=== PATIENT | female | born 1995 | race Caucasian/White ===

== ENCOUNTER 2018-06-19 17:04 | Emergency (ER) | payer SELFPAY ==
[2018-06-19] MEDS ORDERED: DEXAMETHASONE 4 MG TAB ONE (18:11)
[2018-06-19] MEDS ORDERED: IBUPROFEN 400 MG TAB ONE (18:11)
--- NOTE | 2018-06-19 18:48 | EDPHYS ---
Physician Documentation [facility] Name: Kassy Armenta Age: 23 yrs Sex: Female : 1995 Arrival Date: 06/19/2018 Time: 17:08 Bed 12 Private MD: ED Physician Milind Mckeon HPI: 06/19 17:57 This 23 yrs old Female presents to ER via Ambulatory with complaints of Sore ps1 Throat. 17:57 2 days of pharyngitis. Tonsillar swelling, Exudates, subjective fever, pain with ps1 swallowing, Cervical lymphadenopathy. No remitting factors. Worse with swallowing. Pain rated as moderate to severe. . 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 - Social history:: Smoking status: Patient uses tobacco products, smokes one-half pack cigarettes per day. - Ebola Screening: : No symptoms or risks identified at this time. ROS: 17:57 Constitutional: Negative for fever, chills, and weight loss, Eyes: Negative for injury, ps1 pain, redness, and discharge, Cardiovascular: Negative for chest pain, palpitations, and edema, Respiratory: Negative for shortness of breath, cough, wheezing, and pleuritic chest pain, Abdomen/GI: Negative for abdominal pain, nausea, vomiting, diarrhea, and constipation, Back: Negative for injury and pain, Neuro: Negative for headache, weakness, numbness, tingling, and seizure, Psych: Negative for depression, anxiety, suicide ideation, homicidal ideation, and hallucinations. 17:57 ENT: Positive for sore throat. Exam: 17:57 Constitutional: This is a well developed, well nourished patient who is awake, alert, ps1 and in no acute distress. Head/Face: Normocephalic, atraumatic. Eyes: Pupils equal round and reactive to light, extra-ocular motions intact. Lids and lashes normal. Conjunctiva and sclera are non-icteric and not injected. Chest/axilla: Normal chest wall appearance and motion. Nontender with no deformity. No lesions are appreciated. Respiratory: Lungs have equal breath sounds bilaterally, clear to auscultation and percussion. No rales, rhonchi or wheezes noted. No increased work of breathing, no retractions or nasal flaring. Abdomen/GI: Soft, non-tender, with normal bowel sounds. No distension or tympany. No guarding or rebound. No evidence of tenderness throughout. 17:57 ENT: Posterior pharynx: Airway: normal, Tonsils: bilaterally enlarged, with erythema, with exudate, Uvula: normal, swelling, that is mild, peritonsillar mass, is not appreciated. 17:57 Cardiovascular: Rate: tachycardic, Rhythm: regular, Pulses: no pulse deficits are appreciated. Vital Signs: 17:38 BP 123 / 67; Pulse 110; Resp 22 S; Temp 98.9(O); Pulse Ox 100% on R/A; Weight 49.9 kg jl7 (R); Height 5 ft. 2 in. (157.48 cm) (R); Pain 8/10; 17:38 Body Mass Index 20.12 (49.90 kg, 157.48 cm) jl7 MDM: 17:57 Data reviewed: vital signs, nurses notes, and as a result, I will discharge patient. ED ps1 course: decadron and motrin given. Strep screen and throat culture ordered. . 18:02 Patient medically screened. ps1 06/19 17:52 Order name: Strep; Complete Time: 18:44 ps1 06/19 17:52 Order name: Throat Culture ps1 Administered Medications: 18:12 Drug: Motrin 800 mg Route: PO; la1 18:12 Drug: Decadron 10 mg Route: PO; la1 19:00 Drug: Viscous Lidocaine Liquid (4 %) 10 ml Route: Mucous Membrane; iw Disposition: 06/19/18 18:48 Discharged to Home. Impression: Pharyngitis. - Condition is Stable. - Discharge Instructions: Pharyngitis. - Prescriptions for Anaprox DS 550 mg Oral Tablet - take 1 tablet by ORAL route every 12 hours As needed; 20 tablet. Zithromax Z- Leonardo 250 mg Oral Tablet - take 1 tablet by ORAL route as directed for 5 days Day 1 - take two (2) tablets one time. Day 2, 3, 4 , 5 take one (1) tablet once daily.; 6 tablet. Medrol (Leonardo) 4 mg Oral Tablets, Dose Pack - take 1 tablet by ORAL route as directed - follow package instructions; 1 packet. - Work release form, Medication Reconciliation Form, Thank You Letter, Antibiotic Education, Prescription Opioid Use form. - Follow up: Private Physician; When: As needed; Reason: Recheck today's complaints, Continuance of care, Re-evaluation by your physician. Follow up: Emergency Department; When: As needed; Reason: Fever > 102 F, Trouble breathing, Worsening of condition. - Problem is new. - Symptoms have worsened. Signatures: Dispatcher [employer] EDMS Latrice Cody RN RN iw Thomas Gonzalez RN RN la1 Tammie Barba RN RN jl7 Milind Mckeon MD MD ps1 Corrections: (The following items were deleted from the chart) 19:00 18:48 06/19/2018 18:48 Discharged to Home. Impression: Pharyngitis. Condition is iw Stable. Forms are Medication Reconciliation Form, Thank You Letter, Antibiotic Education, Prescription Opioid Use. Follow up: Private Physician; When: As needed; Reason: Recheck today's complaints, Continuance of care, Re-evaluation by your physician. Follow up: Emergency Department; When: As needed; Reason: Fever > 102 F, Trouble breathing, Worsening of condition. Problem is new. Symptoms have worsened. ps1
--- NOTE | 2018-06-19 18:48 | ER ---
Nurse's Notes [facility] Name: Kassy Armenta Age: 23 yrs Sex: Female : 1995 Arrival Date: 06/19/2018 Time: 17:08 Bed 12 Private MD: Diagnosis: Pharyngitis Presentation: 06/19 17:36 Presenting complaint: Patient states: Sore throat started yesterday, noticed pus on jl7 tonsils this morning. Transition of care: patient was not received from another setting of care. Onset of symptoms was June 18, 2018. Risk Assessment: Do you want to hurt yourself or someone else? Patient reports no desire to harm self or others. Initial Sepsis Screen: Does the patient meet any 2 criteria? No. Patient's initial sepsis screen is negative. Does the patient have a suspected source of infection? No. Patient's initial sepsis screen is negative. Care prior to arrival: None. 17:36 Method Of Arrival: Ambulatory [facility] 17:36 Acuity: LEO 4 jl7 Triage Assessment: 17:38 General: Appears in no apparent distress. uncomfortable, Behavior is calm, cooperative, jl7 appropriate for age. Pain: Complains of pain in sore throat Pain currently is 8 out of 10 on a pain scale. Pain began 1 day ago. Is continuous. EENT: Throat has patchy exudate has enlarged tonsils bilaterally. Neuro: Level of Consciousness is awake, alert, obeys commands, Oriented to person, place, time, situation. Cardiovascular: Patient's skin is warm and dry. Respiratory: Airway is patent Respiratory effort is even, unlabored, Respiratory pattern is regular, symmetrical. GI: No signs and/or symptoms were reported involving the gastrointestinal system. : No signs and/or symptoms were reported regarding the genitourinary system. Derm: Skin is pink, warm \T\ dry. Musculoskeletal: No signs and/or symptoms reported regarding the musculoskeletal system. 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 - Social history:: Smoking status: Patient uses tobacco products, smokes one-half pack cigarettes per day. - Ebola Screening: : No symptoms or risks identified at this time. Screenin:41 Abuse screen: Denies threats or abuse. Denies injuries from another. Nutritional iw screening: No deficits noted. Tuberculosis screening: No symptoms or risk factors identified. Fall Risk None identified. Assessment: 18:20 General: Appears uncomfortable, Behavior is calm, cooperative. General: Reports fever iw for feeling ill for. Pain: Complains of pain in throat. Neuro: Level of Consciousness is awake, alert, obeys commands, Oriented to person, place, time, situation, Moves all extremities. Full function. Cardiovascular: Patient's skin is warm and dry. Respiratory: Airway is patent Respiratory effort is even, unlabored, Breath sounds are clear bilaterally. Derm: Skin is pink, warm \T\ dry. normal. Musculoskeletal: Range of motion: intact in all extremities. Vital Signs: 17:38 BP 123 / 67; Pulse 110; Resp 22 S; Temp 98.9(O); Pulse Ox 100% on R/A; Weight 49.9 kg jl7 (R); Height 5 ft. 2 in. (157.48 cm) (R); Pain 8/10; 17:38 Body Mass Index 20.12 (49.90 kg, 157.48 cm) jl7 ED Course: 17:08 Patient arrived in ED. tw3 17:37 Triage completed. jl7 17:38 Arm band placed on right wrist. jl7 17:51 Milind Mckeon MD is Attending Physician. ps1 17:52 Latrice Cody, RN is Primary Nurse. iw 17:59 Primary Nurse role handed off by Latrice Cody, THA iw 18:05 Latrice Cody, RN is Primary Nurse. iw 18:41 Patient has correct armband on for positive identification. iw 18:41 No provider procedures requiring assistance completed. Patient did not have IV access iw during this emergency room visit. Administered Medications: 18:12 Drug: Motrin 800 mg Route: PO; la1 18:12 Drug: Decadron 10 mg Route: PO; la1 19:00 Drug: Viscous Lidocaine Liquid (4 %) 10 ml Route: Mucous Membrane; iw Outcome: 18:48 Discharge ordered by . ps1 18:59 Discharged to home ambulatory. iw 18:59 Condition: good 18:59 Discharge instructions given to patient, Instructed on discharge instructions, follow up and referral plans. medication usage, Demonstrated understanding of instructions, follow-up care, medications, Prescriptions given X 2. 19:00 Patient left the ED. iw Signatures: Latrice Cody RN RN iw Thomas Gonzalez RN RN la1 Tammie Barba RN RN jl7 Dimitris, Stacey tw3 Milind Mckeon MD MD ps1
[2018-06-19] MEDS ORDERED: LIDOCAINE VISCOUS 2% SOLN 15 ML UDC ONE (18:58)
== END 2018-06-19 19:00 | disposition home or self-care (01) ==
LOC: ER 17:04
DX: J02.9 Acute pharyngitis, unspecified (principal); F17.210 Nicotine dependence, cigarettes, uncomplicated
CPT/HCPCS: 87070; 87081; 99283

== ENCOUNTER 2018-10-07 10:44 | Emergency (ER) | payer SELFPAY ==
[2018-10-07] MEDS ORDERED: KETOROLAC 30 MG/ML INJ ONE (11:27)
[2018-10-07 11:36] LABS: Absolute Lymphocytes (CBC) 2.1 K/uL (0.7-4.9); Absolute Monocytes 0.8 K/uL (0.1-1.3); Absolute Neutrophil 7.7 K/uL (1.8-8.0); Basophils % 0.9 % (0-1.3); Eosinophils % 0.9 % (0-4.4); Hematocrit 40.3 % (36.0-45.0); Lymphocytes % 19.8 % (15.3-44.8); MCH 31.4 pg (27.0-35.0); MCV 88.6 fL (80-100); MPV 7.7 fL (7.6-11.3); Monocytes % 7.2 % (3.3-12.3); RBC Red Blood Cell Count 4.56 M/uL (3.86-4.86)
[2018-10-07 11:52] LABS: BUN Blood Urea Nitrogen 13 mg/dL (7-18); Bicarbonate 22 mmol/L (21-32); Glucose Level 82 mg/dL (74-106); Potassium 3.8 mmol/L (3.5-5.1); Sodium Level 140 mmol/L (136-145)
[2018-10-07 12:27] LABS: Urine Bacteria >50 /HPF (<20); Urine Culture Reflex Order REFLEXED; Urine RBC <5 /HPF (NONE SEEN)
--- NOTE | 2018-10-07 12:38 | RAD REPORT ---
EXAM DESCRIPTION: US - Transvaginal Study Probe - 10/07/2018 12:25 pm CLINICAL HISTORY: ABD PAIN Pelvic pain. COMPARISON: PELVIC COMPLETE dated 01/04/2015 FINDINGS: The uterus is normal in size, shape and echotexture. The uterus measures 7.8 x 5.1 x 4.2 c m. The endometrial stripe measures 6 mm, with IUD noted low in position in the lower uterine segment. Both ovaries are normal in size, shape and echotexture. The right ovary measures 4.4 x 2.5 x 2.0 cm. The left ovary measures 3.5 x 2.4 x 1.6 cm. No ovarian or parovarian lesions. No adnexal masses. Normal Doppler blood flow was demonstrated to both ovaries. No significant pelvic ascites. IMPRESSION: Abnormally low position of the IUD within the lower uterine segment.
--- NOTE | 2018-10-07 12:42 | ER ---
Nurse's Notes [facility] Name: Kassy Armenta Age: 23 yrs Sex: Female : 1995 Arrival Date: 10/07/2018 Time: 10:47 Bed 13 Private MD: None, None Diagnosis: Urinary tract infection, site not specified Presentation: 10/07 10:54 Presenting complaint: Patient states: Bilateral Pelvic pain for 1-2 days worsening sg today, denies discharge or urinary symptoms at this time, reports having had a miscarriage in the past, no reported ectopic , pt denies likely varela of at this time, no N/V/D, just a pain in suprapubic and pelvic lower abd area that is a 10/10. Transition of care: patient was not received from another setting of care. Onset of symptoms was October 07, 2018. Risk Assessment: Do you want to hurt yourself or someone else? Patient reports no desire to harm self or others. Initial Sepsis Screen: Does the patient meet any 2 criteria? No. Patient's initial sepsis screen is negative. Does the patient have a suspected source of infection? No. Patient's initial sepsis screen is negative. Care prior to arrival: None. 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 - Social history:: Smoking status: Patient/guardian denies using tobacco. - Ebola Screening: : Patient negative for fever greater than or equal to 101.5 degrees Fahrenheit, and additional compatible Ebola Virus Disease symptoms Patient denies exposure to infectious person Patient denies travel to an Ebola-affected area in the 21 days before illness onset No symptoms or risks identified at this time. Screenin:55 Abuse screen: Denies threats or abuse. Nutritional screening: No deficits noted. rb1 Tuberculosis screening: No symptoms or risk factors identified. Fall Risk None identified. Assessment: 10:55 General: Appears uncomfortable, Behavior is calm, cooperative, Denies fever. Pain: rb1 Complains of pain in left lower quadrant and right lower quadrant and suprapubic area Pain currently is 10 out of 10 on a pain scale. Pain began x 2 days. Neuro: Level of Consciousness is awake, alert, obeys commands, Oriented to person, place, time, situation. Cardiovascular: Capillary refill < 3 seconds is brisk in bilateral fingers. Respiratory: Airway is patent Respiratory effort is even, unlabored, Respiratory pattern is regular, symmetrical. GI: Bowel sounds present X 4 quads. Abd is soft Abdomen is tender to palpation in suprapubic area, right lower quadrant and left lower quadrant. : No signs and/or symptoms were reported regarding the genitourinary system. Derm: Skin is pink, warm \T\ dry. 11:55 Reassessment: Patient appears in no apparent distress at this time. Patient and/or rb1 family updated on plan of care and expected duration. Pain level reassessed. Patient is alert, oriented x 3, equal unlabored respirations, skin warm/dry/pink. 12:52 Reassessment: Patient appears in no apparent distress at this time. No changes from rb1 previously documented assessment. Family at bedside. Vital Signs: 10:55 Pulse 106; Resp 17; Temp 98.1; Pulse Ox 100% ; Weight 54.43 kg (R); Height 5 ft. 5 in. sg (165.10 cm); Pain 10/10; 11:55 BP 137 / 81; Pulse 92; Resp 16; Pulse Ox 99% on R/A; rb1 12:45 BP 117 / 79; Pulse 82; Resp 17; Pulse Ox 99% on R/A; rb1 10:55 Body Mass Index 19.97 (54.43 kg, 165.10 cm) sg 10:55 BP continues to take at this time ED Course: 10:47 Patient arrived in ED. sb2 10:47 None, None is Private Physician. sb2 10:52 Janeen Owens FNP-C is [facility]. kb 10:52 Mehrdad Wilcox MD is Attending Physician. kb 10:55 Triage completed. sg 10:55 Arm band placed on. sg 10:55 Patient has correct armband on for positive identification. Placed in gown. Bed in low rb1 position. Call light in reach. Side rails up X 1. Pulse ox on. NIBP on. 11:05 Jacqui Garrett, RN is Primary Nurse. rb1 11:25 Inserted saline lock: 22 gauge in right antecubital area, using aseptic technique. rb1 Blood collected. 12:18 Ultrasound completed. Patient tolerated well. sg3 13:20 No provider procedures requiring assistance completed. IV discontinued, intact, rb1 bleeding controlled, No redness/swelling at site. Pressure dressing applied. Administered Medications: 11:26 Drug: TORadol 30 mg Route: IVP; Site: right antecubital; rb1 11:42 Follow up: Response: No adverse reaction; Pain is decreased rb1 12:49 Drug: Macrobid 100 mg Route: PO; rb1 13:20 Follow up: Response: No adverse reaction rb1 Outcome: 12:42 Discharge ordered by MD. kb 13:20 Patient left the ED. rb1 13:20 Discharged to home ambulatory. rb1 13:20 Condition: stable 13:20 Discharge instructions given to patient, Instructed on discharge instructions, follow up and referral plans. medication usage, Demonstrated understanding of instructions, follow-up care, medications, Prescriptions given X 2. Addendum: 10/10/2018 08:15 Addendum: Culture Results: Positive urine culture. No further action required. Bacteria i w sensitive to prescribed antibiotic. Signatures: Janeen Owens, SALES FLOOR TEAM MEMBER-C SALES FLOOR TEAM MEMBER-Ckb Chito Cerda, RN THA sg Latrice Cody RN THA Jacqui Garrett, RN RN rb1 Salome Fragoso sg3 Melissa Graves sb2 Corrections: (The following items were deleted from the chart) 10/07 15:53 13:30 Patient left the ED. rb1 rb1
--- NOTE | 2018-10-07 12:42 | EDPHYS ---
Physician Documentation [facility] Name: Kassy Armenta Age: 23 yrs Sex: Female : 1995 Arrival Date: 10/07/2018 Time: 10:47 Bed 13 Private MD: None, None ED Physician Mehrdad Wilcox HPI: 10/07 11:05 This 23 yrs old Female presents to ER via Ambulatory with complaints of kb Abdominal Pain, Pelvic Pain. 11:05 The patient presents with abdominal pain in the lower abdomen. Onset: The kb symptoms/episode began/occurred 2 day(s) ago, and became worse today. The symptoms do not radiate. Associated signs and symptoms: none. The symptoms are described as constant. Modifying factors: The symptoms are alleviated by nothing, the symptoms are aggravated by pressure. Severity of pain: At its worst the pain was moderate severe in the emergency department the pain is unchanged. The patient has not experienced similar symptoms in the past. The patient has not recently seen a physician. 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 - Social history:: Smoking status: Patient/guardian denies using tobacco. - Ebola Screening: : Patient negative for fever greater than or equal to 101.5 degrees Fahrenheit, and additional compatible Ebola Virus Disease symptoms Patient denies exposure to infectious person Patient denies travel to an Ebola-affected area in the 21 days before illness onset No symptoms or risks identified at this time. ROS: 11:03 Constitutional: Negative for fever, chills, and weight loss, ENT: Negative for injury, kb pain, and discharge, Neck: Negative for injury, pain, and swelling, Cardiovascular: Negative for chest pain, palpitations, and edema, Respiratory: Negative for shortness of breath, cough, wheezing, and pleuritic chest pain, Back: Negative for injury and pain, MS/Extremity: Negative for injury and deformity, Skin: Negative for injury, rash, and discoloration, Neuro: Negative for headache, weakness, numbness, tingling, and seizure. 11:03 Abdomen/GI: Positive for abdominal pain, Negative for nausea, vomiting, and diarrhea, constipation, abdominal cramps, abdominal distension, anorexia. 11:03 : Positive for pelvic pain. Exam: 11:04 Head/Face: Normocephalic, atraumatic. ENT: Nares patent. No nasal discharge, no kb septal abnormalities noted. Tympanic membranes are normal and external auditory canals are clear. Oropharynx with no redness, swelling, or masses, exudates, or evidence of obstruction, uvula midline. Mucous membranes moist. Neck: Trachea midline, no thyromegaly or masses palpated, and no cervical lymphadenopathy. Supple, full range of motion without nuchal rigidity, or vertebral point tenderness. No Meningismus. Chest/axilla: Normal chest wall appearance and motion. Nontender with no deformity. No lesions are appreciated. Cardiovascular: Regular rate and rhythm with a normal S1 and S2. No gallops, murmurs, or rubs. Normal PMI, no JVD. No pulse deficits. Respiratory: Lungs have equal breath sounds bilaterally, clear to auscultation and percussion. No rales, rhonchi or wheezes noted. No increased work of breathing, no retractions or nasal flaring. Skin: Warm, dry with normal turgor. Normal color with no rashes, no lesions, and no evidence of cellulitis. MS/ Extremity: Pulses equal, no cyanosis. Neurovascular intact. Full, normal range of motion. Neuro: Awake and alert, GCS 15, oriented to person, place, time, and situation. Cranial nerves II-XII grossly intact. Motor strength 5/5 in all extremities. Sensory grossly intact. Cerebellar exam normal. Normal gait. 11:04 Constitutional: The patient appears alert, awake, in obvious pain. 11:04 Abdomen/GI: Inspection: abdomen appears normal, Bowel sounds: normal, in all quadrants, Palpation: moderate abdominal tenderness, in the suprapubic area, right lower quadrant and left lower quadrant. Vital Signs: 10:55 Pulse 106; Resp 17; Temp 98.1; Pulse Ox 100% ; Weight 54.43 kg (R); Height 5 ft. 5 in. sg (165.10 cm); Pain 10/10; 11:55 BP 137 / 81; Pulse 92; Resp 16; Pulse Ox 99% on R/A; rb1 12:45 BP 117 / 79; Pulse 82; Resp 17; Pulse Ox 99% on R/A; rb1 10:55 Body Mass Index 19.97 (54.43 kg, 165.10 cm) sg 10:55 BP continues to take at this time sg MDM: 10:57 Patient medically screened. kb 11:04 Data reviewed: vital signs, nurses notes. Data interpreted: Pulse oximetry: on room air kb is 100 %. Interpretation: normal. 12:42 Counseling: I had a detailed discussion with the patient and/or guardian regarding: the kb historical points, exam findings, and any diagnostic results supporting the discharge/admit diagnosis, lab results, radiology results, the need for outpatient follow up, a family practitioner, an OB/Gyne specialist, to return to the emergency department if symptoms worsen or persist or if there are any questions or concerns that arise at home. 12 11:03 Order name: Basic Metabolic Panel 10/07 11:03 Order name: CBC with Diff kb 10/07 11:43 Order name: CBC with Automated Diff; Complete Time: 11:44 EDCA 10/07 11:52 Order name: Basic Metabolic Panel; Complete Time: 11:57 EDCA 10/07 12:03 Order name: Urine Culture [facility] 10/07 12:03 Order name: Urine Microscopic Only [facility] 10/07 11:03 Order name: IV Saline Lock; Complete Time: 11:31 kb 10/07 11:03 Order name: US Transvaginal Study (Probe) 10/07 12:12 Order name: Urine Dipstick--Ancillary (enter results) 10/07 12:12 Order name: Urine --Ancillary (enter results) 10/07 12:28 Order name: Urine Microscopic Only; Complete Time: 12:32 EDCA 10/07 12:38 Order name: US; Complete Time: 12:39 EDCA 10/07 11:03 Order name: Labs collected and sent; Complete Time: 11:31 kb 10/07 11:03 Order name: Urine Dipstick-Ancillary (obtain specimen); Complete Time: 12:00 kb 10/07 11:03 Order name: Urine Test (obtain specimen); Complete Time: 12:00 kb Administered Medications: 11:26 Drug: TORadol 30 mg Route: IVP; Site: right antecubital; rb1 11:42 Follow up: Response: No adverse reaction; Pain is decreased rb1 12:49 Drug: Macrobid 100 mg Route: PO; rb1 13:20 Follow up: Response: No adverse reaction rb1 Disposition: 10/07/18 12:42 Discharged to Home. Impression: Urinary tract infection, site not specified. - Condition is Stable. - Discharge Instructions: Urinary Tract Infection, Adult, [id number]. - Prescriptions for Macrobid 100 mg Oral Capsule - take 1 capsule by ORAL route every 12 hours for 10 days; 20 capsule. Diclofenac Sodium 75 mg Oral Tablet, Delayed Release (E.C.) - take 1 tablet by ORAL route 2 times per day As needed; 30 tablet. - Medication Reconciliation Form, Thank You Letter, Antibiotic Education, Prescription Opioid Use form. - Follow up: Emergency Department; When: As needed; Reason: Worsening of condition. Follow up: Private Physician; When: 2 - 3 days; Reason: Recheck today's complaints, Continuance of care, Re-evaluation by your physician. Addendum: 10/09/2018 07:20 Co-signature as Attending Physician, Mehrdad Wilcox MD I agree with the assessment and c del rosario plan of care. Signatures: Dispatcher [employer] EDCA Janeen Owens, WAXER TENDER-C WAXER TENDER-Chito Batista RN RN Mehrdad Peguero MD MD cha Barber, Rebecca, RN RN rb1 Corrections: (The following items were deleted from the chart) 10/07 13:30 12:42 10/07/2018 12:42 Discharged to Home. Impression: Urinary tract infection, site rb1 not specified. Condition is Stable. Forms are Medication Reconciliation Form, Thank You Letter, Antibiotic Education, Prescription Opioid Use. Follow up: Emergency Department; When: As needed; Reason: Worsening of condition. Follow up: Private Physician; When: 2 - 3 days; Reason: Recheck today's complaints, Continuance of care, Re-evaluation by your physician. kb
[2018-10-07] MEDS ORDERED: NITROFURAN MACRO 100 MG CAP PO ONE (12:52)
[2018-10-07 14:04] LABS: Urine Blood 2+ (NEG); Urine Glucose NEGATIVE (NEG); Urine Protein NEGATIVE (NEG); Urine pH 8.5 (5.0-7.0)
== END 2018-10-07 13:30 | disposition home or self-care (01) ==
LOC: ER 10:44
DX: N39.0 Urinary tract infection, site not specified (principal); Z97.5 Presence of (intrauterine) contraceptive device
CPT/HCPCS: 36415; 76830; 80048; 81003; 81015; 81025; 85025; 87077; 87086; 87088; 87186; 96374; 99284

== ENCOUNTER 2018-11-08 12:02 | Emergency (ER) | payer SELFPAY ==
[2018-11-08] MEDS ORDERED: NA CHLORIDE 0.9% 1,000 ML ONE (14:09)
[2018-11-08] MEDS ORDERED: KETOROLAC 30 MG/ML INJ ONE (14:09)
[2018-11-08 14:19] LABS: Absolute Lymphocytes (CBC) 1.8 K/uL (0.7-4.9); Absolute Monocytes 0.7 K/uL (0.1-1.3); Absolute Neutrophil 5.5 K/uL (1.8-8.0); Basophils % 0.7 % (0-1.3); Eosinophils % 1.2 % (0-4.4); Hematocrit 35.5 % (36.0-45.0); Lymphocytes % 21.7 % (15.3-44.8); MPV 7.5 fL (7.6-11.3); Monocytes % 9.1 % (3.3-12.3)
[2018-11-08 14:33] LABS: ALT/SGPT 13 U/L (12-78); AST/SGOT 9 U/L (15-37); Albumin 3.6 g/dL (3.4-5.0); Alkaline Phosphatase 73 U/L (45-117); BUN Blood Urea Nitrogen 13 mg/dL (7-18); Bicarbonate 26 mmol/L (21-32); Bilirubin Direct 0.1 mg/dL (0-0.2); Bilirubin Total 0.3 mg/dL (0.2-1.0); Glucose Level 96 mg/dL (74-106); Lipase 104 U/L (73-393); Potassium 3.6 mmol/L (3.5-5.1); Sodium Level 140 mmol/L (136-145)
--- NOTE | 2018-11-08 14:36 | RAD REPORT ---
EXAM DESCRIPTION: US - Abdomen Exam Limited - 11/08/2018 2:25 pm CLINICAL HISTORY: ABD PAIN COMPARISON: No comparisons FINDINGS: The gallbladder demonstrates no gallstones. No pericholecystic fluid or gallbladder wall t hickening. The common bile duct is normal measuring 3 mm. The liver demonstrates no findings of intrahepatic biliary dilatation. IMPRESSION: Unremarkable examination.
[2018-11-08 14:57] LABS: Blood Morphology Comment NOT SEEN (NOT SEEN); Platelet Estimate INCR; Urine White Blood Cell Casts OK
--- NOTE | 2018-11-08 15:02 | RAD REPORT ---
EXAM DESCRIPTION: CTAbdomen Pelvis W Contrast - 11/08/2018 2:50 pm CLINICAL HISTORY: Abdominal pain. ABD PAIN COMPARISON: CT ABD PELVIS W CONTRAST dated 01/04/2015 TECHNIQUE: Biphasic CT imaging of the abdomen and pelvis was performed with 100 ml non-ionic IV cont rast. All CT scans are performed using dose optimization technique as appropriate and may include automated exposure control or mA/KV adjustment according to patient size. FINDINGS: The lung bases are clear. The liver, spleen, pancreas, adrenal glands and kidneys are within normal limits. No bowel obstruction, free air, intra-abdominal free fluid or abscess. The appendix is not identifie d as a discrete structure, however, no secondary findings of appendicitis are identified. No eviden ce of significant lymphadenopathy. No suspicious bony findings. Mild inflammatory changes are seen in the pericolonic fat along the right paracolic gutter to the lev el of the right upper quadrant. Inflammatory changes are also seen in the inferior anterior aspect of the pelvis with trace pelvic free fluid. IMPRESSION: Consider clinical correlation for possible pelvic inflammatory disease.
--- NOTE | 2018-11-08 15:14 | ER ---
Nurse's Notes [facility] Name: Kassy Armenta Age: 23 yrs Sex: Female : 1995 Arrival Date: 11/08/2018 Time: 12:06 Bed 25 Private MD: None, None Diagnosis: Abdominal and pelvic pain Presentation: 11/08 12:15 Presenting complaint: Patient states: Pain in right scapula that radiates to shoulder aj for 4 days. Transition of care: patient was not received from another setting of care. Onset of symptoms was November 05, 2018. Risk Assessment: Do you want to hurt yourself or someone else? Patient reports no desire to harm self or others. Initial Sepsis Screen: Does the patient meet any 2 criteria? No. Patient's initial sepsis screen is negative. Does the patient have a suspected source of infection? No. Patient's initial sepsis screen is negative. Care prior to arrival: None. 12:15 Method Of Arrival: Ambulatory aj 12:15 Acuity: LEO 4 aj Triage Assessment: 12:16 General: Appears in no apparent distress. comfortable, Behavior is calm, cooperative, aj appropriate for age. Pain: Complains of pain in right scapular area and right subscapular area. Neuro: Level of Consciousness is awake, alert, obeys commands, Oriented to person, place, time, situation, Appropriate for age. Respiratory: Airway is patent Respiratory effort is even, unlabored, Respiratory pattern is regular, symmetrical. Derm: Skin is intact, is healthy with good turgor, Skin is pink, warm \T\ dry. normal. Musculoskeletal: Reports pain in right scapular area and right subscapular area. 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 - Social history:: Smoking status: Patient uses tobacco products, smokes one-half pack cigarettes per day. - Ebola Screening: : Patient negative for fever greater than or equal to 101.5 degrees Fahrenheit, and additional compatible Ebola Virus Disease symptoms Patient denies exposure to infectious person Patient denies travel to an Ebola-affected area in the 21 days before illness onset No symptoms or risks identified at this time. Screenin:20 Abuse screen: Denies threats or abuse. Denies injuries from another. Nutritional kr2 screening: No deficits noted. Tuberculosis screening: No symptoms or risk factors identified. Fall Risk None identified. Assessment: 13:20 General: Appears in no apparent distress. uncomfortable, well groomed, well developed, kr2 well nourished, Behavior is calm, cooperative, appropriate for age. Pain: Complains of pain in right lower quadrant and right subscapular area and right scapular area Pain currently is 5 out of 10 on a pain scale. at worst was 8 out of 10 on a pain scale. Quality of pain is described as aching, sharp, shooting, Is continuous, Alleviated by rest. Neuro: Level of Consciousness is awake, alert, obeys commands, Oriented to person, place, time, situation. Cardiovascular: Capillary refill < 3 seconds in bilateral fingers Patient's skin is warm and dry. Rhythm is regular. Respiratory: Airway is patent Respiratory effort is even, unlabored, Respiratory pattern is regular, symmetrical, Breath sounds are clear bilaterally. GI: Abdomen is flat, non-distended, Abd is soft X 4 quads Abdomen is tender to palpation in right lower quadrant. : Denies burning with urination. EENT: Oral mucosa is moist. Derm: Skin is intact, is healthy with good turgor, Skin is pink, warm \T\ dry. Musculoskeletal: Circulation, motion, and sensation intact. 14:30 Reassessment: Patient appears in no apparent distress at this time. Patient and/or kr2 family updated on plan of care and expected duration. Pain level reassessed. Patient is alert, oriented x 3, equal unlabored respirations, skin warm/dry/pink. 15:30 Reassessment: Patient appears in no apparent distress at this time. Patient and/or kr2 family updated on plan of care and expected duration. Pain level reassessed. Patient is alert, oriented x 3, equal unlabored respirations, skin warm/dry/pink. Patient states feeling better. Patient states symptoms have improved. 16:17 Reassessment: Patient appears in no apparent distress at this time. Patient and/or kr2 family updated on plan of care and expected duration. Pain level reassessed. Patient is alert, oriented x 3, equal unlabored respirations, skin warm/dry/pink. Patient states feeling better. Patient states symptoms have improved. Vital Signs: 12:16 BP 115 / 74; Pulse 59; Resp 19; Temp 98.3; Pulse Ox 99% on R/A; Weight 49.9 kg; Height aj 5 ft. 2 in. (157.48 cm); 13:30 BP 118 / 80; Pulse 60; Resp 17; Pulse Ox 99% on R/A; kr2 15:30 BP 117 / 76; Pulse 64; Resp 17; Pulse Ox 100% on R/A; kr2 16:00 BP 122 / 74; Pulse 60; Resp 16; Pulse Ox 100% on R/A; kr2 12:16 Body Mass Index 20.12 (49.90 kg, 157.48 cm) aj ED Course: 12:06 Patient arrived in ED. sb2 12:07 None, None is Private Physician. sb2 12:16 Triage completed. aj 12:16 Arm band placed on right wrist. Patient placed in waiting room, Patient notified of aj wait time. 12:24 Leanna Zurita FNP-C is PHCP. snw 12:24 Mehrdad Wilcox MD is Attending Physician. snw 13:20 Patient has correct armband on for positive identification. Bed in low position. Call kr2 light in reach. Side rails up X 1. Adult w/ patient. Pulse ox on. NIBP on. Door closed. Warm blanket given. Head of bed elevated. 13:50 Radiology exam delayed due to lab results not completed at this time. (BUN/Creatinine). nj 14:01 Missed attempt(s): 22 gauge in right antecubital area. gm 14:02 Inserted saline lock: 22 gauge in right forearm, using aseptic technique. Blood gm collected. 14:02 Initial lab(s) drawn, by mo, sent to lab. gm 14:25 US Abdomen Limited In Process Unspecified. EDMS 14:47 CT completed. Patient tolerated procedure well. Patient moved to CT via wheelchair. sj Patient moved back from CT. 14:47 Luz Elena Rubio, THA is Primary Nurse. kr2 14:50 CT Abd/Pelvis - W/Contrast In Process Unspecified. EDMS 15:13 Cj Martinez MD is Referral Physician. snw 16:20 No provider procedures requiring assistance completed. IV discontinued, intact, kr2 bleeding controlled, No redness/swelling at site. Pressure dressing applied. Administered Medications: 14:04 Drug: NS 0.9% 1000 ml Route: IV; Rate: 1 bolus; Site: right antecubital; kr2 16:18 Follow up: Response: No adverse reaction; IV Status: Completed infusion kr2 14:04 Drug: TORadol 30 mg Route: IVP; Site: right antecubital; kr2 15:00 Follow up: Response: No adverse reaction; Pain is decreased kr2 15:43 Drug: Rocephin 1 grams Route: IV; Rate: calculated rate; Site: right antecubital; mg2 16:18 Follow up: Response: No adverse reaction; IV Status: Completed infusion kr2 15:43 Drug: Zithromax 1 grams Route: PO; mg2 16:18 Follow up: Response: Medication administered at discharge. kr2 15:43 Drug: Doxycycline 100 mg Route: PO; mg2 16:18 Follow up: Response: Medication administered at discharge. kr2 Outcome: 15:14 Discharge ordered by MD. snw 16:20 Discharged to home ambulatory, with family. kr2 16:20 Condition: good 16:20 Discharge instructions given to patient, family, Instructed on discharge instructions, follow up and referral plans. medication usage, Demonstrated understanding of instructions, follow-up care, medications, Prescriptions given X 2. 16:21 Patient left the ED. kr2 Signatures: Dispatcher [employer] EDAmparo Cota RN RN aj Therrien, Shelly, CLEANING CREW MEMBER-C CLEANING CREW MEMBER-Csnw Savannah Brunner Nathan nj Reaves, Karey, RN RN kr2 Melissa Graves Michele, RN RN mg2 Carla Chery gm
--- NOTE | 2018-11-08 15:14 | EDPHYS ---
Physician Documentation [facility] Name: Kassy Armenta Age: 23 yrs Sex: Female : 1995 Arrival Date: 11/08/2018 Time: 12:06 Bed 25 Private MD: None, None ED Physician Mehrdad Wilcox HPI: 11/08 15:18 This 23 yrs old Female presents to ER via Ambulatory with complaints of snw Shoulder Pain. 15:18 The patient or guardian complains of pain, that is acute. right lower quadrant and snw right upper quadrant and right subscapular area and right scapular area. Onset: The symptoms/episode began/occurred suddenly, 3 day(s) ago, and became worse and became persistent. Associated signs and symptoms: Pertinent negatives: nausea, no vomiting. The patient has not experienced similar symptoms in the past. It is unknown whether or not the patient has recently seen a physician. 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 - Social history:: Smoking status: Patient uses tobacco products, smokes one-half pack cigarettes per day. - Ebola Screening: : Patient negative for fever greater than or equal to 101.5 degrees Fahrenheit, and additional compatible Ebola Virus Disease symptoms Patient denies exposure to infectious person Patient denies travel to an Ebola-affected area in the 21 days before illness onset No symptoms or risks identified at this time. ROS: 13:46 Constitutional: Negative for fever, chills, and weight loss, Eyes: Negative for injury, snw pain, redness, and discharge, ENT: Negative for injury, pain, and discharge, Neck: Negative for injury, pain, and swelling, Cardiovascular: Negative for chest pain, palpitations, and edema, Respiratory: Negative for shortness of breath, cough, wheezing, and pleuritic chest pain, Back: Negative for injury and pain, : Negative for injury, bleeding, discharge, and swelling, Skin: Negative for injury, rash, and discoloration, Neuro: Negative for headache, weakness, numbness, tingling, and seizure. 13:46 Abdomen/GI: Positive for abdominal pain, nausea. 13:46 MS/extremity: Positive for decreased range of motion, pain, Negative for injury or acute deformity. Exam: 13:45 Constitutional: This is a well developed, well nourished patient who is awake, alert, snw and in no acute distress. Head/Face: Normocephalic, atraumatic. Eyes: Pupils equal round and reactive to light, extra-ocular motions intact. Lids and lashes normal. Conjunctiva and sclera are non-icteric and not injected. Cornea within normal limits. Periorbital areas with no swelling, redness, or edema. ENT: Nares patent. No nasal discharge, no septal abnormalities noted. Tympanic membranes are normal and external auditory canals are clear. Oropharynx with no redness, swelling, or masses, exudates, or evidence of obstruction, uvula midline. Mucous membranes moist. Neck: Trachea midline, no thyromegaly or masses palpated, and no cervical lymphadenopathy. Supple, full range of motion without nuchal rigidity, or vertebral point tenderness. No Meningismus. Chest/axilla: Normal chest wall appearance and motion. Nontender with no deformity. No lesions are appreciated. Cardiovascular: Regular rate and rhythm with a normal S1 and S2. No gallops, murmurs, or rubs. Normal PMI, no JVD. No pulse deficits. Respiratory: Lungs have equal breath sounds bilaterally, clear to auscultation and percussion. No rales, rhonchi or wheezes noted. No increased work of breathing, no retractions or nasal flaring. Back: No spinal tenderness. No costovertebral tenderness. Full range of motion. Skin: Warm, dry with normal turgor. Normal color with no rashes, no lesions, and no evidence of cellulitis. Neuro: Awake and alert, GCS 15, oriented to person, place, time, and situation. Cranial nerves II-XII grossly intact. Motor strength 5/5 in all extremities. Sensory grossly intact. Cerebellar exam normal. Normal gait. Psych: Awake, alert, with orientation to person, place and time. Behavior, mood, and affect are within normal limits. 13:45 Abdomen/GI: Inspection: abdomen appears normal, Bowel sounds: normal, Palpation: moderate abdominal tenderness, in all quadrants, severe abdominal tenderness, in the right upper quadrant and right lower quadrant, involuntary guarding, is elicited in the right upper quadrant and right lower quadrant. 13:45 Musculoskeletal/extremity: Extremities: pain radiates to right shoulder. snw Vital Signs: 12:16 BP 115 / 74; Pulse 59; Resp 19; Temp 98.3; Pulse Ox 99% on R/A; Weight 49.9 kg; Height aj 5 ft. 2 in. (157.48 cm); 13:30 BP 118 / 80; Pulse 60; Resp 17; Pulse Ox 99% on R/A; kr2 15:30 BP 117 / 76; Pulse 64; Resp 17; Pulse Ox 100% on R/A; kr2 16:00 BP 122 / 74; Pulse 60; Resp 16; Pulse Ox 100% on R/A; kr2 12:16 Body Mass Index 20.12 (49.90 kg, 157.48 cm) aj MDM: 13:21 Patient medically screened. snw 15:17 Data reviewed: vital signs, nurses notes. Data interpreted: Pulse oximetry: on room air snw is 99 %. Interpretation: normal. Counseling: I had a detailed discussion with the patient and/or guardian regarding: the historical points, exam findings, and any diagnostic results supporting the discharge/admit diagnosis, lab results, radiology results, the need for outpatient follow up, to return to the emergency department if symptoms worsen or persist or if there are any questions or concerns that arise at home. 11/08 13:40 Order name: Hepatic Function; Complete Time: 14:47 snw 11/08 13:40 Order name: Basic Metabolic Panel; Complete Time: 14:47 snw 11/08 13:40 Order name: CBC with Diff; Complete Time: 14:58 snw 11/08 13:40 Order name: Lipase; Complete Time: 14:47 snw 11/08 13:40 Order name: Test, Serum; Complete Time: 14:32 snw 11/08 13:44 Order name: Urine Dipstick--Ancillary (enter results) ag 11/08 13:40 Order name: CT Abd/Pelvis - W/Contrast; Complete Time: 15:03 snw 11/08 13:40 Order name: US Abdomen Limited; Complete Time: 14:47 snw 11/08 13:44 Order name: Urine --Ancillary (enter results) ag 11/08 14:24 Order name: CBC Smear Scan; Complete Time: 14:58 EDMS 11/08 13:40 Order name: IV Saline Lock; Complete Time: 13:57 snw 11/08 13:40 Order name: Labs collected and sent; Complete Time: 13:58 snw 11/08 13:40 Order name: NPO; Complete Time: 14:08 snw Administered Medications: 14:04 Drug: NS 0.9% 1000 ml Route: IV; Rate: 1 bolus; Site: right antecubital; kr2 16:18 Follow up: Response: No adverse reaction; IV Status: Completed infusion kr2 14:04 Drug: TORadol 30 mg Route: IVP; Site: right antecubital; kr2 15:00 Follow up: Response: No adverse reaction; Pain is decreased kr2 15:43 Drug: Rocephin 1 grams Route: IV; Rate: calculated rate; Site: right antecubital; mg2 16:18 Follow up: Response: No adverse reaction; IV Status: Completed infusion kr2 15:43 Drug: Zithromax 1 grams Route: PO; mg2 16:18 Follow up: Response: Medication administered at discharge. kr2 15:43 Drug: Doxycycline 100 mg Route: PO; mg2 16:18 Follow up: Response: Medication administered at discharge. kr2 Disposition: 11/09 07:00 Co-signature as Attending Physician, Mehrdad Wilcox MD I agree with the assessment and will plan of care. Disposition: 11/08/18 15:14 Discharged to Home. Impression: Abdominal and pelvic pain. - Condition is Stable. - Discharge Instructions: Abdominal Pain, Adult, Pelvic Pain, Female, Shoulder Pain. - Prescriptions for Doxycycline Hyclate 100 mg Oral Tablet - take 1 tablet by ORAL route every 12 hours; 20 tablet. Diclofenac Sodium 75 mg Oral Tablet Sustained Release - take 1 tablet by ORAL route 2 times per day; 30 tablet. - Medication Reconciliation Form, Thank You Letter, Antibiotic Education, Prescription Opioid Use form. - Follow up: Emergency Department; When: As needed; Reason: Worsening of condition. Follow up: Cj Martinez MD; When: 2 - 3 days; Reason: Recheck today's complaints, Continuance of care. Signatures: Dispatcher [employer] Amparo Barahona RN RN aj Anderson, Corey, MD MD cha Therrien, Shelly, TEXTILE DESIGNS SALES REPRESENTATIVE-C TEXTILE DESIGNS SALES REPRESENTATIVE-Csnw Luz Elena Rubio, RN RN kr2 Gavino Sr, RN RN mg2 Corrections: (The following items were deleted from the chart) 11/08 13:46 13:45 Abdomen/GI: Inspection: abdomen appears normal, Bowel sounds: normal, Palpation: snw moderate abdominal tenderness, in all quadrants, severe abdominal tenderness, in the right upper quadrant and right lower quadrant, involuntary guarding, is elicited in the right upper quadrant and right lower quadrant, snw 16:21 15:14 11/08/2018 15:14 Discharged to Home. Impression: Abdominal and pelvic pain. kr2 Condition is Stable. Forms are Medication Reconciliation Form, Thank You Letter, Antibiotic Education, Prescription Opioid Use. Follow up: Emergency Department; When: As needed; Reason: Worsening of condition. Follow up: Cj Martinez; When: 2 - 3 days; Reason: Recheck today's complaints, Continuance of care. snw
[2018-11-08] MEDS ORDERED: CEFTRIAXONE/SWI 1gm 1 GM/10 ML SYR ONE (15:36)
[2018-11-08] MEDS ORDERED: AZITHROMYCIN 250 MG TAB ONE (15:36)
[2018-11-08] MEDS ORDERED: DOXYCYCLINE 100 MG CAP PO ONE (15:36)
[2018-11-08 16:18] LABS: Urine Blood TRACE (NEG); Urine Glucose NEGATIVE (NEG); Urine Protein 1+ (NEG); Urine Specific Gravity 1.025 (1.005-1.030)
== END 2018-11-08 16:21 | disposition home or self-care (01) ==
LOC: ER 12:02
DX: R10.2 Pelvic and perineal pain (principal); F17.210 Nicotine dependence, cigarettes, uncomplicated
CPT/HCPCS: 36415; 74177; 76705; 80048; 80076; 81003; 81025; 83690; 84703; 85025; J0696; J7030; Q9967

== ENCOUNTER 2020-12-05 12:55 | Emergency (ER) | payer OTHER, SELFPAY ==
--- OUTSIDE RECORDS SUMMARY | 2020-12-05 12:58 | XMS REPORT | Continuity of Care Document ---
:1995 Author Organization [facility] t Address [address] [place] [address] Care Team Providers Name Role Phone Jonny Tse Attending Clinician Problems This patient has no known problems. Allergies, Adverse Reactions, Alerts This patient has no known allergies or adverse reactions. Medications This patient has no known medications. Procedures This patient has no known procedures. Encounters Start End Encounter Admission Attending Care Care Encounter Source Date/Time Date/Time Type Type Clinicians Facility Department ID 2020-06-19 2020-06-26 Office [facility] [place] [id number] 15:15:26 16:10:25 Visit Hussain Fuller [facility] [id number] [facility] [id number] MATERNAL [id number] & CHILD [address] [place] [address] Results This patient has no known results.
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
[2020-12-05] MEDS ORDERED: TRAMADOL HCL 50 MG TAB ONE (17:36)
--- NOTE | 2020-12-05 17:43 | RAD REPORT ---
EXAM DESCRIPTION: RAD - Ankle Right 3 View - 12/05/2020 5:37 pm CLINICAL HISTORY: PAIN COMPARISON: Foot Right 3 View dated 12/05/2020 FINDINGS: No fracture or dislocation is seen.
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
[2020-12-05 18:20] VITALS: BP 120/87; TEMP 97.6; O2SAT 99
== END 2020-12-05 18:09 | disposition home or self-care (01) ==
LOC: ER 12:55
DX: M54.2 Cervicalgia (principal); M79.18 Myalgia, other site; S90.31XA Contusion of right foot, initial encounter; V43.52XA Car driver injured in collision with other type car in traffic accident, initial encounter; Y93.89 Activity, other specified; Y92.410 Unspecified street and highway as the place of occurrence of the external cause
CPT/HCPCS: 70450; 72125; 99283

== ENCOUNTER 2022-06-14 09:38 | Emergency (ER) | payer OTHER ==
--- OUTSIDE RECORDS SUMMARY | 2022-06-14 09:41 | XMS REPORT | Continuity of Care Document ---
:1995 [facility] t Address [address] [place] [address] Care Team Providers Name Role Phone Ozzie GUDINO, Nathan Garcia Primary Care Physician [phone] Diane Solis MD Attending Clinician ALEJO Attending Clinician Unavailable Hussain Tse Attending Clinician ALEJO Admitting Clinician Unavailable Payers Payer Name Policy Type Policy Number Effective Date Expiration Date S ource Problems Condition Condition Condition Status Onset Resolution Last Treating Co mments Source Name Details Category Date Date Treatment Clinician Date Screen for Screen for Disease Active 2020-0 U nivers STD STD 8-13 ity of [place] dical d disease) d disease) Br anch Disease Active 2020-0 Univers (spontaneo (spontaneo 05-09 [place] delivery[place] 00 [facility] Branch Single Single Disease Active 2020-0 Univers live live 7 it y of 00:00: [place] 00 Medical Branch Labor and Labor and Disease Active 2020-0 Uni vers delivery, delivery, 05-07 ity of indication [place] [facility] 39 weeks 39 weeks Disease Active 2020-0 Unive rs gestation gestation 05-07 ity of of of 00:00: [place] 00 [facility] ronaldo Branch Dizziness Dizziness Disease Active 2020- Uni vers 6-01 ity of 00:00: 00 Medical Branch Near Near Disease Active 2020-0 Univers syncope syncope 5-31 ity of 00:00: [place] 00 [facility] [place] Syncope Syncope Disease Active 2020- Univers 5-31 ity of 00:00: [place] 00 Medical Branch BMI BMI Disease Active 2020-0 Univers 27.0-27.9, 27.0-27.9, 5-06 it y of adult adult 00:00: [place] [facility] Rh Rh Disease Active 2018-11 Overview: Univer s negative negative 08 Formattin ity of state in state in 00:00: g of this [place] as antepartum antepartum 00 note Me dical period period might be Branch different from the original. Rhogam is needed at 28wks and Postpartu m. Multiparit Multiparit Disease Active 2018-11 U nivers y y 1- ity of 00:00: [place] [facility] Allergies, Adverse Reactions, Alerts This patient has no known allergies or adverse reactions. Social History Social Habit Start Date Stop Date Quantity Comments Source Exposure to 2022-05-22 2022-06-01 Not sure [facility] SARS-CoV-2 (event) 00:00:00 11:32:00 [facility] Alcohol intake 2022-06-01 2022-06-01 Ex-drinker University 00:00:00 00:00:00 (finding) [facility] Tobacco Comment 2022-05-24 2022-05-24 Vape Universit y of 00:00:00 00:00:00 [facility] Cigarettes smoked 2022-05-24 2022-05-24 Univers ity of current (pack per 00:00:00 00:00:00 [facility] ) - Reported Branch Tobacco use and 2022-05-24 2022-05-24 User of Universit y of exposure 00:00:00 00:00:00 smokeless [facility] History of tobacco 2019-04-13 Cigarette Smoker University of use 00:00:00 [facility] Sex Assigned At [birth year] Universit y of 00:00:00 00:00:00 [facility] Smoking Status Start Date Stop Date Source Ex-smoker 2022-05-24 00:00:00 2022-05-24 00:00:00 [facility] [place] [facility] Medications Ordered Filled Start Stop Current Ordering Indication Dosage Frequency Signature Comments Components Source Medication Medication Date Date Medication? Clinician (SIG) Name Name SERTraline Yes [id number] 50mg Take 2 U nivers 25 mg 7-26 tablets by ity of tablet 00:00: mouth in [place] 00 the Medical morning. Branch ALPRAZolam Yes [id number] .25mg Take 1 Univers 0.25 mg 7-26 tablet by ity of dissolvable 00:00: mouth 3 [place] tablet 00 (three) Medical times Branch daily as needed for Anxiety. SERTraline 2021- No [id number] 25mg Take 1 Univers 25 mg 7-18 -26 tablet by ity of tablet 00:00: 00:00 mouth in [place] 00 :00 the Medical morning Branch for 90 days. hydrOXYzine 2021- No [id number] 10mg Take 1 Univers 10 mg 7-18 -26 tablet by ity of tablet 00:00: 00:00 mouth [place] 00 :00 every 6 Medical (six) Branch hours as needed for Itching (Anxiety, insomnia, may make sleepy). indomethaci 2021- No [id number] 50mg Take 1 Univers n 50 mg 5-15 -26 capsule by ity o f capsule 00:00: 00:00 mouth 3 [place] 00 :00 (three) Medical times Branch daily with meals as needed for Pain. Immunizations Ordered Immunization Filled Immunization Date Status Commen ts Source Name Name Rho (d) Immune 2020-05-09 Completed University of Globulin 00:00:00 [facility] Rho (d) Immune 2020-02-27 Completed University of Globulin 00:00:00 [facility] TDAP 2020-02-27 Completed University of 00:00:00 [facility] Influenza Virus 2019-08-14 Completed Universit y of Vaccine Quad .5 mL IM 00:00:00 [place] Medical 6+ MO Branch Varicella 2010-12-15 Completed University of (varivax)(chicken 00:00:00 [place] M edical pox) Branch Meningococcal 2009-06-19 Completed University of Polysaccharide 00:00:00 [facility] ronaldo (groups A, C, Y and Branc h W-135) conjugate vaccine (MCV4P) MMR 2001-06-06 Completed [facility] 00:00:00 [facility] Vital Signs Vital Name Observation Time Observation Value Comments Source Systolic blood 2022-06-01 16:37:00 118 mm[Hg] Univer sity [facility] pressure [facility] Diastolic blood 2022-06-01 16:37:00 80 mm[Hg] Unive rsity [facility] Heart rate 2022-06-01 16:37:00 72 /min [facility] Body height 2022-06-01 16:37:[address] [facility] Body weight 2022-06-01 16:37:[address] [facility] BMI 2022-06-01 16:37:00 20.37 kg/m2 [facility] Oxygen saturation 2022-06-01 16:37:00 97 /min [facility] in Arterial blood [facility] anch by Pulse oximetry Procedures This patient has no known procedures. Encounters Start End Encounter Admission Attending Care Care Encounter Source Date/Time Date/Time Type Type Clinicians Facility Department ID 2022-06-01 2022-06-01 Office JEAN Solis [id number] Univers 11:30:00 12:13:03 Visit [facility] [id number] [facility] [id number] [place] GAGE?BLEA [id number] [address] MEDICAL OFFICE BUILDING 2022-05-19 2022-05-19 Outpatient AVERYLEMAGO_ [place] [id number] [place] 05:10:00 05:10:00 [facility] 2020-06-19 2020-06-26 Office JEAN [place] [id number] 15:15:26 16:10:25 Visit Hussain Fuller [facility] [id number] [facility] [id number] MATERNAL [id number] & CHILD [address] [place] [address] Results This patient has no known results.
[2022-06-14 10:38] LABS: Urine Blood Trace-intact (Negative); Urine Glucose Negative (Negative); Urine Protein Negative (Negative); Urine Specific Gravity >=1.030 (1.005-1.030); Urine pH 5.5 (5.0-7.0)
[2022-06-14 11:02] LABS: Urine RBC <5 /HPF (None Seen)
[2022-06-14 11:03] LABS: Urine Bacteria 20-50 /HPF (<20); Urine Mucus 1+ /HPF (None Seen)
[2022-06-14] MEDS ORDERED: ONDANSETRON 4 MG/2 ML VIAL ONE (11:05)
[2022-06-14] MEDS ORDERED: MORPHINE 2 MG/ML SYR ONE (11:05)
[2022-06-14 11:07] LABS: Absolute Lymphocytes (CBC) 1.5 K/uL (0.7-4.9); Lymphocytes % 20.5 % (15.3-44.8); MCV 91.8 fL (80-100); MPV 7.2 fL (7.6-11.3); RBC Red Blood Cell Count 4.47 M/uL (3.86-4.86)
[2022-06-14 11:33] LABS: Albumin 4.7 g/dL (3.4-5.0); Bilirubin Total 0.5 mg/dL (0.2-1.0); Protein, Total 9.1 g/dL (6.4-8.2)
[2022-06-14] MEDS ORDERED: MORPHINE 4 MG/ML SYR ONE (11:51)
--- NOTE | 2022-06-14 12:56 | RAD REPORT ---
EXAM DESCRIPTION: CTAbdomen Pelvis W Contrast - 06/14/2022 12:44 pm CLINICAL HISTORY: RLQ abdominal pain COMPARISON: Abdomen Pelvis W Contrast dated 11/08/2018; CT ABD PELVIS W CONTRAST dated 01/04/2015 TECHNIQUE: CT of the abdomen and pelvis was performed with contrast. All CT scans are performed using dose optimization technique as appropriate and may include automated exposure control or mA/KV adjustment according to patient size. FINDINGS: Lower chest: No acute abnormality. Liver: No acute abnormality or suspicious lesions. Biliary: No biliary ductal dilatation. Stomach: No significant focal abnormality. Duodenum: No significant focal abnormality. Pancreas: No significant abnormality. Spleen: No significant abnormality. Adrenal: No suspicious lesions. Kidney/ureter: No hydronephrosis. No renal calculi. Retroperitoneum: No retroperitoneal adenopathy. Vascular: No aneurysm. Bowel: No significant focal abnormality. Normal appendix. Peritoneum: No ascites or free air. Bladder: Grossly unremarkable. Reproductive: No adnexal masses. IUD Bones: No acute fracture. Other: n/a IMPRESSION: No acute intra-abdominal or pelvic finding. Normal appendix.
[2022-06-14] MEDS ORDERED: KETOROLAC 30 MG/ML INJ ONE (13:07)
[2022-06-14] MEDS ORDERED: NA CHLORIDE 0.9% 1,000 ML ONE (13:07)
[2022-06-14 13:19] LABS: Urine Specific Gravity/Preg >1.030 (1.005-1.030)
[2022-06-14] MEDS ORDERED: CEFTRIAXONE 1000 MG/VIAL ONE (13:33)
[2022-06-14] MEDS ORDERED: NA CHLORIDE 0.9% 50 ML ONE (13:33)
--- NOTE | 2022-06-14 13:33 | EDPHYS ---
Physician Documentation [facility] Name: Kassy Armenta Age: 27 yrs Sex: Female : 1995 Arrival Date: 06/14/2022 Time: 09:39 Bed DIS7 Private MD: Nathan Horne ED Physician Timothy Parrish HPI: 06/14 10:10 This 27 yrs old Female presents to ER via Ambulatory with complaints of Abdominal Pain. cp 10:10 The patient presents with abdominal pain right side of abdomen. cp 10:10 Onset: The symptoms/episode began/occurred 2 day(s) ago. cp 10:10 Associated signs and symptoms: Pertinent negatives: diarrhea, dysuria, fever, urinary cp frequency, hematuria, pain radiating to the lower extremities, vomiting. Patient reports pain to right side of abdomen times 2 days. Patient started right upper abdomen and now radiates to right lower lower abdomen and right flank. MANAGER PROPOSAL: 09:53 LMP N/A - control method Historical: - Allergies: 09:53 No Known Allergies; jl7 - Home Meds: 09:53 Xanax Oral [Active]; jl7 - PMHx: 09:53 Anxiety; jl7 - PSHx: 09:53 None; jl7 - Immunization history:: Client reports receiving the 2nd dose of the Covid vaccine. - Social history:: Smoking status: Patient denies any tobacco usage or history of. ROS: 10:15 Constitutional: Negative for body aches, chills, fever, poor PO intake. cp 10:15 Cardiovascular: Negative for chest pain, edema, palpitations. cp 10:15 Respiratory: Negative for cough, shortness of breath, wheezing. 10:15 Abdomen/GI: Positive for abdominal pain, Negative for vomiting, diarrhea, constipation, anorexia. 10:15 Back: Positive for pain at rest, of the right mid back, Negative for injury or acute deformity. 10:15 Neuro: Negative for altered mental status, headache, numbness, syncope, tingling, weakness. 10:15 Eyes: Negative for injury, pain, redness, and discharge. cp 10:15 ENT: Negative for drainage from ear(s), ear pain, sore throat, difficulty swallowing, difficulty handling secretions. 10:15 : Negative for urinary symptoms. cp 10:15 All other systems are negative. Exam: 10:20 Constitutional: The patient appears in no acute distress, alert, awake, non-toxic, well cp developed, well nourished. 10:20 Head/Face: Normocephalic, atraumatic. cp 10:20 Eyes: Periorbital structures: appear normal, Conjunctiva: normal, no exudate, no cp injection, Sclera: no appreciated abnormality, Lids and lashes: appear normal, bilaterally. 10:20 ENT: External ear(s): are unremarkable, Nose: is normal, Mouth: Lips: moist, Oral mucosa: pink and intact, moist, Posterior pharynx: Airway: no evidence of obstruction, patent. 10:20 Chest/axilla: Inspection: normal, Palpation: is normal, no crepitus, no tenderness. cp 10:20 Cardiovascular: Rate: normal, Rhythm: regular. 10:20 Respiratory: the patient does not display signs of respiratory distress, Respirations: normal, no use of accessory muscles, no retractions, labored breathing, is not present, Breath sounds: are clear throughout, no decreased breath sounds, no stridor, no wheezing. 10:20 Abdomen/GI: Inspection: abdomen appears normal, Bowel sounds: active, all quadrants, Palpation: soft, in all quadrants, rebound tenderness, is not appreciated, voluntary guarding, is not appreciated, involuntary guarding, is not appreciated. 10:20 Back: pain, that is moderate, of the right lateral mid back, ROM is painful, with all movement, Straight leg raises: of both lower extremities does not illicit pain. 10:20 Skin: no rash present. 10:20 Neuro: Orientation: to person, place \T\ time. Mentation: is normal, Motor: moves all fours, strength is normal, Sensation: is normal. Vital Signs: 09:50 BP 122 / 84; Pulse 85; Resp 17; Temp 98.9(O); Pulse Ox 100% on R/A; Weight 52.16 kg; jl7 Height 5 ft. 3 in. (160.02 cm); Pain 8/10; 10:30 BP 114 / 86; Pulse 75; Resp 18; Pulse Ox 100% on R/A; eh3 11:30 BP 119 / 79; Pulse 77; Resp 18; Pulse Ox 100% on R/A; eh3 12:30 BP 123 / 80; Pulse 74; Resp 16; Pulse Ox 100% on R/A; eh3 09:50 Body Mass Index 20.37 (52.16 kg, 160.02 cm) jl7 MDM: 10:51 Patient medically screened. cp 11:00 Differential diagnosis: nephrolithiasis, pyelonephritis, UTI, appendicitis, bowel cp obstruction, cholecystitis, Cholelithiasis, gastritis, pancreatitis, Peptic Ulcer Disease, Perf. Duodenal Ulcer, Perf. Gastric Ulcer. 13:30 Data reviewed: vital signs, nurses notes, lab test result(s), radiologic studies, CT cp scan. 13:30 Counseling: I had a detailed discussion with the patient and/or guardian regarding: the cp historical points, exam findings, and any diagnostic results supporting the discharge/admit diagnosis, lab results, radiology results, the need for outpatient follow up, a family practitioner, to return to the emergency department if symptoms worsen or persist or if there are any questions or concerns that arise at home. Response to treatment: the patient's symptoms have markedly improved after treatment, and as a result, I will discharge patient. 06/14 10:04 Order name: CBC with Diff; Complete Time: 11:52 06/14 11:53 Interpretation: MPV 7.2; Reviewed. 06/14 10:04 Order name: CMP; Complete Time: 11:52 06/14 11:52 Interpretation: Normal except: AST 13; TP 9.1; GLOB 4.4. 06/14 10:04 Order name: Lipase; Complete Time: 11:52 06/14 10:04 Order name: Urine Microscopic Only; Complete Time: 11:52 06/14 11:52 Interpretation: Abnormal: UBACT 20-50. 06/14 10:38 Order name: Urine Dipstick-Ancillary; Complete Time: 10:53 EDMS 06/14 10:53 Interpretation: Normal except: UBLD Trace-intact; UESTR Trace. 06/14 10:04 Order name: CT Abd/Pelvis - PO and IV Contrast; Complete Time: 12:58 06/14 11:06 Order name: Urine Culture EDNC 06/14 12:39 Order name: Urine --Ancillary; Complete Time: 13:25 EDNC 06/14 13:25 Interpretation: Reviewed. 06/14 10:04 Order name: IV Saline Lock; Complete Time: 10:59 cp 06/14 10:04 Order name: Labs collected and sent; Complete Time: 10:59 cp 06/14 10:04 Order name: Urine Dipstick-Ancillary (obtain specimen); Complete Time: 10:54 cp 06/14 10:04 Order name: Urine Test (obtain specimen); Complete Time: 10:54 cp Administered Medications: 10:51 Drug: Zofran (Ondansetron) 4 mg Route: IVP; Site: right antecubital; kr3 11:35 Follow up: Response: No adverse reaction kr3 14:18 Follow up: Response: No adverse reaction eh3 11:05 Drug: morphine 2 mg Route: IVP; Infused Over: 4 mins; Site: right antecubital; kr3 11:36 Follow up: Response: No adverse reaction; RASS: Alert and Calm (0) kr3 14:18 Follow up: Response: No adverse reaction eh3 11:51 Drug: morphine 4 mg Route: IVP; Infused Over: 4 mins; Site: right antecubital; kr3 14:18 Follow up: Response: No adverse reaction eh3 12:55 Drug: Ketorolac 15 mg Route: IVP; Site: right antecubital; eh3 14:17 Follow up: Response: No adverse reaction eh3 12:59 Drug: NS 0.9% 1000 ml Route: IV; Rate: 1 bolus; Site: right antecubital; eh3 13:48 Follow up: Response: No adverse reaction eh3 13:20 Drug: Rocephin - (cefTRIAXone) 1 grams Route: IVPB; Infused Over: 30 mins; Site: right eh3 antecubital; 14:17 Follow up: Response: No adverse reaction eh3 14:00 Drug: Dilaudid (HYDROmorphone) 0.5 mg Route: IVP; Site: right antecubital; eh3 14:18 Follow up: Response: No adverse reaction eh3 Disposition Summary: 06/14/22 13:31 Discharge Ordered Location: Home cp Problem: new cp Symptoms: have improved cp Condition: Stable cp Diagnosis - UTI/ Urinary tract infection, site not specified cp Followup: cp - With: Private Physician - When: 1 - 2 days - Reason: Recheck today's complaints Discharge Instructions: - Discharge Summary Sheet cp - Urinary Tract Infection, Adult cp Forms: - Medication Reconciliation Form cp - Thank You Letter cp - Antibiotic Education cp - Prescription Opioid Use cp Prescriptions: - cefpodoxime 200 mg Oral Tablet - take 1 tablet by ORAL route every 12 hours for 7 days with food; 14 tablet; cp Refills: 0, Product Selection Permitted - Ibuprofen 600 mg Oral Tablet - take 1 tablet by ORAL route every 8 hours As needed take with food; 30 tablet; cp Refills: 0, Product Selection Permitted - Tramadol 50 mg Oral Tablet - take 1 tablet by ORAL route every 8 hours as needed; 12 tablet; Refills: 0, cp Product Selection Permitted Addendum: 06/15/2022 19:46 Co-signature as Attending Physician, Timothy Parrish MD. r n Signatures: Dispatcher [employer] EDMS Timothy Parrish MD MD rn Page, Corey, PA PA cp Tammie Barba RN RN jl7 Larissa Keller RN RN 3 Suzie Laureano RN RN kr3 Corrections: (The following items were deleted from the chart) 06/14 09:54 09:53 PMHx: None; zaira meneses 11:53 11:52 Reviewed. cp cp
--- NOTE | 2022-06-14 13:33 | ER ---
Nurse's Notes [facility] Name: Kassy Armenta Age: 27 yrs Sex: Female : 1995 Arrival Date: 06/14/2022 Time: 09:39 Bed DIS7 Private MD: Nathan Horne Diagnosis: UTI/ Urinary tract infection, site not specified Presentation: 06/14 09:50 Chief complaint: Patient states: RUQ pain x 2 days, radiates to RLQ, denies N/V/D, last jl7 BM this morning and normal, denies symptoms. Coronavirus screen: At this time, the client does not indicate any symptoms associated with coronavirus-19. Ebola Screen: No symptoms or risks identified at this time. Initial Sepsis Screen: Does the patient meet any 2 criteria? No. Patient's initial sepsis screen is negative. Does the patient have a suspected source of infection? No. Patient's initial sepsis screen is negative. Risk Assessment: Do you want to hurt yourself or someone else? Patient reports no desire to harm self or others. Onset of symptoms was June 12, 2022. 09:50 Method Of Arrival: Ambulatory jl7 09:50 Acuity: LEO 3 jl7 Triage Assessment: 09:53 General: Appears in no apparent distress. uncomfortable, Behavior is calm, cooperative, jl7 appropriate for age. Pain: Complains of pain in right upper quadrant Pain radiates to right lower quadrant Pain currently is 8 out of 10 on a pain scale. 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 - Social history:: Smoking status: Patient denies any tobacco usage or history of. Screenin:18 Abuse screen: Denies threats or abuse. Denies injuries from another. Nutritional eh3 screening: No deficits noted. Tuberculosis screening: No symptoms or risk factors identified. Fall Risk None identified. Assessment: 12:18 Reassessment: No changes from previously documented assessment. Pain: Pain currently is eh3 7 out of 10 on a pain scale. Vital Signs: 09:50 BP 122 / 84; Pulse 85; Resp 17; Temp 98.9(O); Pulse Ox 100% on R/A; Weight 52.16 kg; jl7 Height 5 ft. 3 in. (160.02 cm); Pain 8/10; 10:30 BP 114 / 86; Pulse 75; Resp 18; Pulse Ox 100% on R/A; eh3 11:30 BP 119 / 79; Pulse 77; Resp 18; Pulse Ox 100% on R/A; eh3 12:30 BP 123 / 80; Pulse 74; Resp 16; Pulse Ox 100% on R/A; eh3 09:50 Body Mass Index 20.37 (52.16 kg, 160.02 cm) jl7 ED Course: 09:39 Patient arrived in ED. am2 09:39 Nathan Horne MD is Private Physician. am2 09:42 Mehrdad Mcgee PA is PHCP. cp 09:42 Timothy Parrish MD is Attending Physician. cp 09:52 Triage completed. jl7 09:53 Arm band placed on right wrist. jl7 10:55 Suzie Laureano, RN is Primary Nurse. kr3 10:58 Inserted saline lock: 20 gauge in right antecubital area, using aseptic technique. kc6 Blood collected. 10:59 CBC with Diff Sent. kc6 10:59 CMP Sent. kc6 10:59 Lipase Sent. kc6 12:17 Primary Nurse role handed off by Suzie Laureano, RN eh3 12:17 Larissa Keller is Primary Nurse. eh3 12:18 Patient has correct armband on for positive identification. Bed in low position. Call eh3 light in reach. Side rails up X2. 12:45 CT Abd/Pelvis - PO and IV Contrast In Process Unspecified. EDMS Administered Medications: 10:51 Drug: Zofran (Ondansetron) 4 mg Route: IVP; Site: right antecubital; kr3 11:35 Follow up: Response: No adverse reaction kr3 14:18 Follow up: Response: No adverse reaction eh3 11:05 Drug: morphine 2 mg Route: IVP; Infused Over: 4 mins; Site: right antecubital; kr3 11:36 Follow up: Response: No adverse reaction; RASS: Alert and Calm (0) kr3 14:18 Follow up: Response: No adverse reaction eh3 11:51 Drug: morphine 4 mg Route: IVP; Infused Over: 4 mins; Site: right antecubital; kr3 14:18 Follow up: Response: No adverse reaction eh3 12:55 Drug: Ketorolac 15 mg Route: IVP; Site: right antecubital; eh3 14:17 Follow up: Response: No adverse reaction eh3 12:59 Drug: NS 0.9% 1000 ml Route: IV; Rate: 1 bolus; Site: right antecubital; eh3 13:48 Follow up: Response: No adverse reaction eh3 13:20 Drug: Rocephin - (cefTRIAXone) 1 grams Route: IVPB; Infused Over: 30 mins; Site: right eh3 antecubital; 14:17 Follow up: Response: No adverse reaction eh3 14:00 Drug: Dilaudid (HYDROmorphone) 0.5 mg Route: IVP; Site: right antecubital; eh3 14:18 Follow up: Response: No adverse reaction eh3 Outcome: 13:31 Discharge ordered by MD. christie 14:19 Patient left the ED. 3 Signatures: Dispatcher [employer] EDMS Mehrdad Mcgee PA PA cp Leal, Jahala, RN RN jl7 Amparo Sotomayor Erin, RN RN eh3 Suzie Laureano RN RN kr3 Katrin Uribe kc6 Corrections: (The following items were deleted from the chart) 09:54 09:53 PMHx: None; jl7 jl7 13:48 12:59 NS 0.9% 1000 ml IV at 1 bolus in right subclavian eh3 eh3
[2022-06-14] MEDS ORDERED: HYDROMORPHONE HCL 0.5 MG/0.5 ML INJ ONE (14:16)
[2022-06-14 15:03] VITALS: TEMP 98.9; O2SAT 100
[2022-06-14 15:11] VITALS: BP 123/80
== END 2022-06-14 14:19 | disposition home or self-care (01) ==
LOC: ER 09:38
DX: N39.0 Urinary tract infection, site not specified (principal); F41.9 Anxiety disorder, unspecified
CPT/HCPCS: 87088; 85025; 87086; 36415; 81025; 83690; 80053; 74177; Q9967; J2270; J1170; J7030; J2405; 81003; 81015; 87077; 87186; 96374; 96375; 99284

== ENCOUNTER 2024-07-18 17:23 | Emergency (ER) | payer OTHER, SELFPAY ==
--- NOTE | 2024-07-18 19:17 | RAD REPORT ---
EXAM DESCRIPTION: Bee Morales (2 Views)07/18/2024 6:28 pm CLINICAL HISTORY: Chest pain COMPARISON: None FINDINGS: The lungs appear clear of acute infiltrate. The heart is normal size IMPRESSION: No acute abnormalities displayed
--- NOTE | 2024-07-18 19:17 | RAD REPORT ---
EXAM DESCRIPTION: RAD - Ribs Left - 07/18/2024 6:28 pm CLINICAL HISTORY: Left rib FINDINGS: No fracture seen
[2024-07-18] MEDS ORDERED: HYDROCODONE/APAP 5/325 MG TAB ONE (19:32)
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
[2024-07-18 20:15] VITALS: BP 136/96; TEMP 97.7; O2SAT 100
== END 2024-07-18 19:45 | disposition home or self-care (01) ==
LOC: ER 17:23
DX: R07.89 Other chest pain (principal)
CPT/HCPCS: 71046; 99282

== ENCOUNTER 2024-08-10 22:59 | Emergency (ER) | payer SELFPAY, OTHER ==
[2024-08-10] MEDS ORDERED: ACETAMINOPHEN 325 MG TABLET ONE (23:18)
[2024-08-11 00:09] LABS: Absolute Basophils 0.1 K/uL (0-0.5); Absolute Eosinophils 0.1 K/uL (0-0.5); Absolute Lymphocytes (CBC) 2.8 K/uL (0.7-4.9); Absolute Monocytes 0.5 K/uL (0.1-1.3); Absolute Neutrophil 3.5 K/uL (1.8-8.0); Basophils % 0.8 % (0-1.3); Eosinophils % 1.7 % (0-4.4); Hematocrit 33.6 % (36.0-45.0); Hemoglobin 11.6 g/dL (12.0-15.0); Lymphocytes % 39.9 % (15.3-44.8); MCH 32.4 pg (27.0-35.0); MCHC 34.4 g/dL (32.0-36.0); MCV 94.4 fL (80-100); MPV 7.7 fL (7.6-11.3); Monocytes % 7.7 % (3.3-12.3); Neutrophils % 49.9 % (41.7-73.7); Platelets 308 thou/uL (152-406); RBC Red Blood Cell Count 3.56 M/uL (3.86-4.86); Red Cell Distribution Width 13.6 % (12.1-15.2)
[2024-08-11 00:13] LABS: Specific Gravity 1.019 (1.005-1.030)
[2024-08-11 00:15] LABS: Specific Gravity 1.019 (1.005-1.030); Urine Bacteria >50 /HPF (<20); Urine Bilirubin NEGATIVE (Negative); Urine Blood 2+ (Negative); Urine Clarity Extremely Turbid (Clear); Urine Color Light-Yellow (Yellow); Urine Culture Reflex Order NOT NEEDED; Urine Glucose NEGATIVE (Negative); Urine Ketones NEGATIVE (Negative); Urine Microscopic Reflex YN ORDER UMIC; Urine Mucus 4+ /HPF (None Seen); Urine Nitrite 2+ (Negative); Urine Protein TRACE (Negative); Urine RBC None Seen /HPF (None Seen); Urine Urobilinogen Normal (Normal)
[2024-08-11 01:04] LABS: Anion Gap 8.2 mEq/L (5.0-15.0); Potassium 3.2 mEq/L (3.5-5.1)
[2024-08-11] MEDS ORDERED: POTASSIUM 25 MEQ EFFERV TAB ONE (01:15)
--- NOTE | 2024-08-11 03:51 | RAD REPORT ---
PROCEDURE: US TRANSVAGINAL INDICATION: Abdominal cramping. . COMPARISON: None TECHNIQUE: Transvaginal sonographic evaluation was performed. FINDINGS: A single intrauterine gestational sac with a pole and a yolk sac is visualized. CROWN-RUMP LENGTH: 0.5 cm 6 weeks 1 days. MEAN SAC DIAMETER: 1.31 cm 6 weeks 1 days. HEART RATE: 121 BPM. YOLK SAC: 0.23 cm. SONOGRAPHIC GESTATIONAL AGE: 6 weeks 1 days. COLE: 04/05/2025 UTERUS: Dimension: 9.2 x 5.5 x 5.8 cm Subchorionic hemorrhage: None. Placenta: Not identified secondary to early gestational age. Amnionic fluid: Qualitatively normal. Fibroid/masses: None. Cervix: Normal. RIGHT OVARY: Measurement: 3.1 x 2.2 x 2.6 cm. Cyst/Masses: 1.7 x 1.4 x 1.4 cm anechoic structure with surrounding vascularity, in keeping with a co rpus luteal cyst. Blood Flow: Normal. Adnexa: Unremarkable. LEFT OVARY: Measurement: 2.1 x 1.2 x 1.3 cm. Cyst/Masses: None. Blood Flow: Normal. Adnexa: Unremarkable. FREE FLUID IN THE PELVIS: None. OTHER: None. IMPRESSION: 1. Single intrauterine with a heart rate of 121 beats per minute. 2. Sonographic gestational age 6 weeks 1 days. 3. Small 1.7 cm right ovarian corpus luteal cyst. Electronically signed by: Lubna Germain MD 08/11/2024 02:24 AM CDT Due to temporary technical issues with the PACS[employer] reporting system, reports are being sign ed by the in-house radiologist without review as a courtesy to ensure prompt reporting the interpreting rad iologist is fully responsible for the content of the report. Transcribed Date/Time: 08/11/2024 3:50 AM
--- NOTE | 2024-08-11 05:12 | EDPHYS ---
Physician Documentation [facility] Name: Kassy Armenta Age: 29 yrs Sex: Female : 1995 Arrival Date: 08/10/2024 Time: 22:59 Bed 14 Private MD: ED Physician Estevan Villafana HPI: 08/10 23:20 This 29 yrs old Female presents to ER via Ambulatory with complaints of EST 10 WKS cp GESTATION, Pelvic Pain. 23:20 The patient presents to the emergency department with abdominal pain, of the right cp lower quadrant and left lower quadrant, that started today, described as crampy. The estimated gestational age is 10 weeks. 23:20 course: care: private OB physician, Leakage of Fluid: none cp appreciated, Ultrasound: the patient has not had an ultrasound. Associated signs and symptoms: Pertinent positives: blood when wiping, Pertinent negatives: fever, nausea, ruptured membranes, vomiting. 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 - Infectious Disease History:: Denies. - Social history:: Smoking status: Reported history of juuling and/or vaping. ROS: 23:25 Constitutional: Negative for body aches, chills, fever, poor PO intake, cp 23:25 Cardiovascular: Negative for chest pain, palpitations, cp 23:25 Respiratory: Negative for cough, shortness of breath, wheezing, 23:25 Abdomen/GI: Positive for abdominal cramps, Negative for vomiting, diarrhea, constipation, 23:25 : Negative for flank pain, vaginal bleeding, 23:25 Neuro: Negative for altered mental status, headache, weakness, cp 23:25 All other systems are negative, cp Exam: 23:30 Constitutional: The patient appears in no acute distress, alert, awake, non-toxic, well cp developed, well nourished, 23:30 Head/Face: Normocephalic, atraumatic. cp 23:30 Eyes: Periorbital structures: appear normal, Conjunctiva: normal, no exudate, no injection, Sclera: no appreciated abnormality, Lids and lashes: appear normal, bilaterally, 23:30 ENT: External ear(s): are unremarkable, Nose: is normal, Mouth: Lips: moist, Oral mucosa: pink and intact, moist, Posterior pharynx: is normal, airway is patent, no erythema, no exudate, 23:30 Chest/axilla: Inspection: normal, 23:30 Cardiovascular: Rate: normal, 23:30 Respiratory: the patient does not display signs of respiratory distress, Respirations: normal, no use of accessory muscles, no retractions, labored breathing, is not present, Breath sounds: are clear throughout, no decreased breath sounds, no stridor, no wheezing, 23:30 Abdomen/GI: Inspection: abdomen appears normal, Palpation: soft, in all quadrants, mild abdominal tenderness, in the right lower quadrant and left lower quadrant, rebound tenderness, is not appreciated, involuntary guarding, is not appreciated, 23:30 Back: CVA tenderness, is absent, Vital Signs: 23:02 BP 114 / 85; Pulse 81; Resp 17 S; Temp 97.6(T); Pulse Ox 100% on R/A; Weight 54.43 kg; ha1 Height 5 ft. 4 in. ; 23:25 BP 126 / 89; Pulse 72; Resp 20; Temp 98; Pulse Ox 100% ; kj2 10 00:38 BP 108 / 78; Pulse 68; Resp 18; Pulse Ox 100% ; kj2 03:17 BP 113 / 75; Pulse 74; Resp 18; Temp 98.4; Pulse Ox 100% on R/A; kj2 04:27 BP 115 / 78; Pulse 76; Resp 18; Pulse Ox 100% on R/A; kj2 08/10 23:02 Body Mass Index 20.60 (54.43 kg, 162.56 cm) ha1 MDM: 08/10 23:08 Patient medically screened. cp 10 00:00 Differential diagnosis: STD, ectopic . cp 03:05 ED course: PROCEDURE: US PREGNANCYTRANSVAGINAL INDICATION: Abdominal cramping. sp4 . COMPARISON: None TECHNIQUE: Transvaginal sonographic evaluation was performed. FINDINGS: A single intrauterine gestational sac with a pole and a yolk sac is visualized. CROWN-RUMP LENGTH: 0.5 cm 6 weeks 1 days. MEAN SAC DIAMETER: 1.31 cm 6 weeks 1 days. HEART RATE: 121 BPM. YOLK SAC: 0.23 cm. SONOGRAPHIC GESTATIONAL AGE: 6 weeks 1 days. COLE: 04/05/2025 UTERUS: Dimension: 9.2 x 5.5 x 5.8 cm Subchorionic hemorrhage: None. Placenta: Not identified secondary to early gestational age. Amnionic fluid: Qualitatively normal. Fibroid/masses: None. Cervix: Normal. RIGHT OVARY: Measurement: 3.1 x 2.2 x 2.6 cm. Cyst/Masses: 1.7 x 1.4 x 1.4 cm anechoic structure with surrounding vascularity, in keeping with a corpus luteal cyst. Blood Flow: Normal. Adnexa: Unremarkable. LEFT OVARY: Measurement: 2.1 x 1.2 x 1.3 cm. Cyst/Masses: None. Blood Flow: Normal. Adnexa: Unremarkable. FREE FLUID IN THE PELVIS: None. OTHER: None. IMPRESSION: 1. Single intrauterine with a heart rate of 121 beats per minute. 2. Sonographic gestational age 6 weeks 1 days. 3. Small 1.7 cm right ovarian corpus luteal cyst. . 03:49 Differential diagnosis: kina infection, cervicitis, dysmenorrhea, ectopic . sp4 Data reviewed: vital signs, nurses notes, jail records, lab test result(s), radiologic studies, ultrasound. Consideration of Admission/Observation Escalation of care including admission/observation considered. ED course: Discharge home after RhoGAM injection. 08/10 23:14 Order name: Abo/rh Typing; Complete Time: 01:10 cp 08/10 23:14 Order name: Basic Metabolic Panel; Complete Time: 01:10 cp 08/11 01:10 Interpretation: Normal except: K 3.2. cp 08/10 23:14 Order name: CBC with Diff; Complete Time: 00:31 cp 08/11 00:31 Interpretation: Normal except: RBC 3.56; HGB 11.6; HCT 33.6. cp 08/10 23:14 Order name: Test, Urine; Complete Time: 00:31 cp 08/11 00:31 Interpretation: Reviewed. 08/10 23:14 Order name: Quantitative Hcg; Complete Time: 01:10 cp 08/10 23:14 Order name: Urinalysis w/ reflexes; Complete Time: 00:31 cp 08/11 00:32 Interpretation: Normal except: [facility] Extremely Turbid; UBLD 2+; UPROT TRACE; UNIT 2+; cp UESTR 500; UBACT >50; MUCUS 4+. 08/11 01:25 Order name: Rhogam cp 08/11 01:28 Order name: Rh Typing EDDC 08/11 01:28 Order name: Antibody Screen EDDC 08/11 01:28 Order name: Fetalscreen EDDC 08/11 01:28 Order name: Cord Rh type EDMS 08/10 23:14 Order name: US Transvaginal Ob cp 08/10 23:14 Order name: IV Saline Lock; Complete Time: 23:34 cp 08/10 23:14 Order name: Labs collected and sent; Complete Time: 23:34 cp 08/10 23:14 Order name: NPO; Complete Time: 23:34 cp Administered Medications: 08/10 23:34 Drug: Acetaminophen PO 650 mg PO once Route: PO; kj2 08/11 00:39 Follow up: Response: No adverse reaction; Pain is decreased kj2 01:19 Drug: Potassium PO Effervescent Tablet 50 mEq PO once; dissolve in 4 ounces of water or kj2 juice Route: PO; 01:47 Follow up: Response: No adverse reaction kj2 03:30 Drug: Rho D Immune Globulin IM 300 mcg IM once Route: IM; Site: right vastus lateralis; ha1 03:52 Follow up: Response: No adverse reaction ha1 Disposition: 03:48 Co-signature as Attending Physician, Estevan Villafana MD I agree with the assessment sp4 and plan of care. I reviewed the patient's care provided by Advanced Practice Provider \T\ agree w/ the diagnosis \T\ care plan. I personally saw the pt \T\ performed a substantive portion of the visit, incldng all aspects of the (History/Exam/Medical Decision Making). Disposition Summary: 08/11/24 05:11 Discharge Ordered Notes: Location: Home sp4 Problem: new sp4 Symptoms: have improved sp4 Condition: Stable sp4 Diagnosis - Threatened sp4 - UTI/ Urinary tract infection, site not specified sp4 Followup: cp - With: Private Physician - When: 2 - 3 days - Reason: Recheck today's complaints Discharge Instructions: - Discharge Summary Sheet cp - Threatened Miscarriage cp Forms: - Patient Portal Instructions sp4 Prescriptions: - Macrobid 100 mg Oral Capsule - take 1 capsule ORAL route every 12 hours for 7 days; 14 capsule; Refills: 0, cp Product Selection Permitted Signatures: Dispatcher [employer] EDMS Mehrdad Mcgee PA PA cp Ophelia Thomas, RN RN ha1 Estevan Villafana MD MD sp4 Cristina Allison RN RN kj2 Corrections: (The following items were deleted from the chart) 08/10 23:15 23:15 ABO/RH TYPING+BB.LAB.BRZ ordered. EDMS EDMS 23:15 23:15 BASIC METABOLIC PANEL+C.LAB.BRZ ordered. EDMS EDMS 23:15 23:15 CBC+H.LAB.BRZ ordered. EDMS EDMS 23:15 23:15 Test, Urine+UC.LAB.BRZ ordered. EDMS EDMS 23:15 23:15 QUANTITATIVE HCG+C.LAB.BRZ ordered. EDMS EDMS 23:15 23:15 Urinalysis+U.LAB.BRZ ordered. EDMS EDMS 23:15 23:15 Transvaginal Ob+US.RAD.BRZ ordered. EDMS EDMS 08/11 01:12 08/10 23:25 : Positive for vaginal spotting, Negative for flank pain, cp cp 08/11 01:26 01:26 RHOGAM+BB.LAB.BRZ ordered. EDMS EDMS 22:49 03:49 All other systems are negative, sp4 cp 22:49 03:50 Constitutional: Negative for fever, chills, and weight loss, sp4 cp
--- NOTE | 2024-08-11 05:12 | ER ---
Nurse's Notes [facility] Name: Kassy Armenta Age: 29 yrs Sex: Female : 1995 Arrival Date: 08/10/2024 Time: 22:59 Bed 14 Private MD: Diagnosis: Threatened ;UTI/ Urinary tract infection, site not specified Presentation: 08/10 23:02 Chief complaint: Patient states: 10 WEEKS , SUDDEN ABDOMINAL CRAMPING. DENIES ha1 VAGINAL BLEEDING. 23:02 Coronavirus screen: Vaccine status: Patient reports receiving the 2nd dose of the covid ha1 vaccine. Ebola Screen: No symptoms or risks identified at this time. Initial Sepsis Screen: Does the patient meet any 2 criteria? No. Patient's initial sepsis screen is negative. Does the patient have a suspected source of infection? No. Patient's initial sepsis screen is negative. Risk Assessment: Do you want to hurt yourself or someone else? Patient reports no desire to harm self or others. Onset of symptoms was August 10, 2024. 23:02 Method Of Arrival: Ambulatory ha1 23:02 Acuity: LEO 3 ha1 Triage Assessment: 23:02 General: Appears uncomfortable, Behavior is calm, cooperative. Pain: Complains of pain ha1 in pelvis Pain radiates to back Pain currently is 7 out of 10 on a pain scale. Quality of pain is described as crampy, Pain began suddenly, Is intermittent. Neuro: Level of Consciousness is awake, alert, obeys commands, Oriented to person, place, time, situation. Cardiovascular: Capillary refill < 3 seconds Patient's skin is warm and dry. Respiratory: Airway is patent Respiratory effort is even, unlabored, Respiratory pattern is regular, symmetrical. GI: Abdomen is round non-distended, Reports upper abdominal pain. : Reports cramping, Denies vaginal bleeding. 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 - Infectious Disease History:: Denies. - Social history:: Smoking status: Reported history of juuling and/or vaping. Screenin:32 [facility] ED Fall Risk Assessment (Adult) History of falling in the last 3 months, ha1 including since admission No falls in past 3 months (0 pts) Confusion or Disorientation No (0 pts) Intoxicated or Sedated No (0 pts) Impaired Gait No (0 pts) Mobility Assist Device Used No (0 pt) Altered Elimination No (0 pt) Score/Fall Risk Level 0 - 2 = Low Risk Oriented to surroundings, Maintained a safe environment, Educated pt \T\ family on fall prevention, incl call for assistance when getting out of bed, Hourly rounding (assess needs \T\ fall precautionary measures) done. Abuse screen: Denies threats or abuse. Denies injuries from another. Nutritional screening: No deficits noted. Tuberculosis screening: No symptoms or risk factors identified. Assessment: 23:25 General: Appears in no apparent distress. uncomfortable, Behavior is calm, cooperative. kj2 Pain: Complains of pain in back and pelvis Pain currently is 7 out of 10 on a pain scale. Neuro: Level of Consciousness is awake, alert, obeys commands, Oriented to person, place, time, situation. Cardiovascular: Patient's skin is warm and dry. Respiratory: Airway is patent Respiratory effort is even, unlabored. GI: No signs and/or symptoms were reported involving the gastrointestinal system. : No signs and/or symptoms were reported regarding the genitourinary system. 08/11 00:38 Reassessment: Patient appears in no apparent distress at this time. Patient and/or kj2 family updated on plan of care and expected duration. Pain level reassessed. Patient is alert, oriented x 3, equal unlabored respirations, skin warm/dry/pink. 01:47 Reassessment: Patient appears in no apparent distress at this time. Patient and/or kj2 family updated on plan of care and expected duration. Pain level reassessed. Patient is alert, oriented x 3, equal unlabored respirations, skin warm/dry/pink. 03:17 Reassessment: Patient appears in no apparent distress at this time. Patient and/or kj2 family updated on plan of care and expected duration. Pain level reassessed. Patient is alert, oriented x 3, equal unlabored respirations, skin warm/dry/pink. 03:30 Reassessment: PROVIDED EDUCATION ON FOLLOWING UP WITH OB AND RHOGAM ADMINISTRATION. ha1 04:27 Reassessment: Patient appears in no apparent distress at this time. Patient and/or kj2 family updated on plan of care and expected duration. Pain level reassessed. Patient is alert, oriented x 3, equal unlabored respirations, skin warm/dry/pink. 05:17 Reassessment: Patient appears in no apparent distress at this time. Patient and/or kj2 family updated on plan of care and expected duration. Pain level reassessed. Patient is alert, oriented x 3, equal unlabored respirations, skin warm/dry/pink. Vital Signs: 08/10 23:02 BP 114 / 85; Pulse 81; Resp 17 S; Temp 97.6(T); Pulse Ox 100% on R/A; Weight 54.43 kg; ha1 Height 5 ft. 4 in. ; 23:25 BP 126 / 89; Pulse 72; Resp 20; Temp 98; Pulse Ox 100% ; kj2 08/11 00:38 BP 108 / 78; Pulse 68; Resp 18; Pulse Ox 100% ; kj2 03:17 BP 113 / 75; Pulse 74; Resp 18; Temp 98.4; Pulse Ox 100% on R/A; kj2 04:27 BP 115 / 78; Pulse 76; Resp 18; Pulse Ox 100% on R/A; kj2 08/10 23:02 Body Mass Index 20.60 (54.43 kg, 162.56 cm) ha1 ED Course: 08/10 23:01 Patient arrived in ED. jj6 23:08 Mehrdad Mcgee PA is PHCP. cp 23:08 Estevan Villafana MD is Attending Physician. cp 23:15 Cristina Allison RN is Primary Nurse. kj2 23:28 Triage completed. ha1 23:34 Inserted saline lock: 20 gauge in right antecubital area, using aseptic technique. kj2 Blood collected. Flushed with 10 mL NS. 23:37 No provider procedures requiring assistance completed. kj2 23:37 Arm band placed on Patient placed in an exam room, on a stretcher. kj2 23:38 Patient has correct armband on for positive identification. Bed in low position. Call kj2 light in reach. Side rails up X 1. Adult w/ patient. Provided Education on: call light. 08/11 01:27 US Transvaginal Ob In Process Unspecified. EDMS 05:25 IV discontinued, intact, bleeding controlled, No redness/swelling at site. Pressure kj2 dressing applied. Administered Medications: 08/10 23:34 Drug: Acetaminophen PO 650 mg PO once Route: PO; kj2 08/11 00:39 Follow up: Response: No adverse reaction; Pain is decreased kj2 01:19 Drug: Potassium PO Effervescent Tablet 50 mEq PO once; dissolve in 4 ounces of water or kj2 juice Route: PO; 01:47 Follow up: Response: No adverse reaction kj2 03:30 Drug: Rho D Immune Globulin IM 300 mcg IM once Route: IM; Site: right vastus lateralis; ha1 03:52 Follow up: Response: No adverse reaction ha1 Medication: 08/10 23:37 VIS not applicable for this client. kj2 Outcome: 08/11 05:11 Discharge ordered by MD. presley 05:25 Discharged to home ambulatory, with family, kj2 05:25 Condition: stable 05:25 Discharge instructions given to patient, Instructed on discharge instructions, follow up and referral plans. medication usage, Demonstrated understanding of instructions, follow-up care, medications, 05:26 Patient left the ED. kj2 Signatures: Dispatcher [employer] EDMS Mehrdad Mcgee PA PA cp Jeffries, Jennifer jj6 Ophelia Thomas, RN RN ha1 Estevan Villafana MD MD sp4 Cristina Allison RN RN kj2
[2024-08-11 05:48] VITALS: O2SAT 100
[2024-08-11 05:56] VITALS: TEMP 98.4
[2024-08-11 05:57] VITALS: BP 115/78
== END 2024-08-11 05:26 | disposition home or self-care (01) ==
LOC: ER 22:59
DX: O20.0 Threatened abortion (principal); O23.41 Unspecified infection of urinary tract in pregnancy, first trimester; N39.0 Urinary tract infection, site not specified; Z3A.10 10 weeks gestation of pregnancy
CPT/HCPCS: 36415; 76817; 80048; 81001; 81025; 84702; 85025; 86850; 86900; 86901; 96372; 99284; J2790

== ENCOUNTER 2024-10-12 11:24 | Emergency (ER) | payer OTHER ==
[2024-10-12 12:23] LABS: Absolute Lymphocytes (CBC) 1.4 K/uL (0.7-4.9); Absolute Monocytes 0.4 K/uL (0.1-1.3); Absolute Neutrophil 5.9 K/uL (1.8-8.0); Basophils % 0.4 % (0-1.3); Eosinophils % 0.4 % (0-4.4); Hemoglobin 11.8 g/dL (12.0-15.0); Lymphocytes % 18.2 % (15.3-44.8); MCH 31.8 pg (27.0-35.0); MCHC 33.9 g/dL (32.0-36.0); MCV 93.9 fL (80-100); MPV 7.5 fL (7.6-11.3); Platelets 293 thou/uL (152-406); RBC Red Blood Cell Count 3.72 M/uL (3.86-4.86); Red Cell Distribution Width 12.5 % (12.1-15.2)
[2024-10-12 12:27] LABS: Specific Gravity > 1.030 (1.005-1.030)
[2024-10-12 12:32] LABS: Specific Gravity > 1.030 (1.005-1.030); Sqamous Epithelial 20-50 /HPF (None Seen); Urine Bacteria 20-50 /HPF (<20); Urine Bilirubin NEGATIVE (Negative); Urine Blood Negative (Negative); Urine Clarity Extremely Turbid (Clear); Urine Color Yellow (Yellow); Urine Culture Reflex Order NOT NEEDED; Urine Glucose NEGATIVE (Negative); Urine Granular Casts 0-5 /LPF (None Seen); Urine Ketones TRACE (Negative); Urine Microscopic Reflex YN ORDER UMIC; Urine Mucus 4+ /HPF (None Seen); Urine Nitrite NEGATIVE (Negative); Urine Protein 1+ (Negative); Urine RBC <5 /HPF (None Seen); Urine Urobilinogen Normal (Normal)
[2024-10-12] MEDS ORDERED: NA CHLORIDE 0.9% 1,000 ML ONE (12:35)
[2024-10-12 12:41] LABS: AST/SGOT 12 U/L (15-37); Albumin 3.4 g/dL (3.4-5.0); Albumin/Globulin Ratio 0.8 (1.1-1.8); Alkaline Phosphatase 41 U/L (45-117); Anion Gap 10.6 mEq/L (5.0-15.0); BUN Blood Urea Nitrogen 10 mg/dL (7-18); Bicarbonate 24 mEq/L (21-32); Bilirubin Total 0.4 mg/dL (0.2-1.0); Globulin 4.1 g/dL (2.3-3.5); Glomerular Filtration Rate 117 ml/min (=/>90); Glucose Level 85 mg/dL (74-106); Potassium 3.6 mEq/L (3.5-5.1); Protein, Total 7.5 g/dL (6.4-8.2); Sodium Level 137 mEq/L (136-145)
[2024-10-12 12:45] LABS: ALT/SGPT < 14 U/L (13-56); Bilirubin Direct < 0.2 mg/dL (0-0.2); Bilirubin Indirect, Calculated 0.2 mg/dL (0.2-0.8)
[2024-10-12] MEDS ORDERED: ACETAMINOPHEN 325 MG TABLET ONE (13:05)
--- NOTE | 2024-10-12 13:18 | RAD REPORT ---
EXAM:OB Limited CLINICAL HISTORY: with abdominal pain. Syncope TECHNIQUE: Limited OB ultrasound performed FINDINGS: Intrauterine with femur length 1.5 cm. Variable presentation. Cardiac activity 134 bpm. Cervix 4.5 cm. Placenta anterior. No subchorionic/retroplacental bleed seen. Amniotic fluid within normal limits. The right and left adnexa unremarkable. IMPRESSION: Single live intrauterine with an estimated gestational age 14 weeks 4 days 6-25 No gross abnormality seen on this limited exam. If a survey is desired it should be performed in approximately 3-4 weeks.
--- NOTE | 2024-10-12 13:22 | ER ---
Nurse's Notes [facility] Name: Kassy Armenta Age: 29 yrs Sex: Female : 1995 Arrival Date: 10/12/2024 Time: 11:24 Bed 13 Private MD: Diagnosis: Dehydration, UTI Presentation: 10/12 11:46 Chief complaint: Patient states: lightheaded for past couple weeks . Today I was out iw fishing and the feeling got worse, everything went black and as I got to my car my legs gave out . Is 14 weeks and 5 days . Coronavirus screen: At this time, the client does not indicate any symptoms associated with coronavirus-19. Ebola Screen: No symptoms or risks identified at this time. Initial Sepsis Screen: Does the patient meet any 2 criteria? No. Patient's initial sepsis screen is negative. Does the patient have a suspected source of infection? No. Patient's initial sepsis screen is negative. Risk Assessment: Do you want to hurt yourself or someone else? Patient reports no desire to harm self or others. Onset of symptoms was October 12, 2024. 11:46 Method Of Arrival: Ambulatory iw 11:46 Acuity: LEO 3 iw Triage Assessment: 11:50 General: Appears in no apparent distress. uncomfortable, Behavior is calm, cooperative. rs5 Pain: Complains of pain in right hip Pain currently is 4 out of 10 on a pain scale. Quality of pain is described as aching, Is continuous. EENT: No signs and/or symptoms were reported regarding the EENT system. 11:50 Neuro: Level of Consciousness is awake, alert, obeys commands, Oriented to person, rs5 place, time, situation. Cardiovascular: Patient's skin is warm and dry. Respiratory: Airway is patent Respiratory effort is even, unlabored, Respiratory pattern is regular, symmetrical. GI: Abdomen is round non-distended, Abd is soft and non tender X 4 quads. : No signs and/or symptoms were reported regarding the genitourinary system. Derm: Skin is intact, Skin is pink, warm \T\ dry. Musculoskeletal: Range of motion: intact in all extremities, Reports generalized weakness. Historical: - Allergies: 11:48 No Known Allergies; iw - Home Meds: 11:48 Xanax Oral [Active]; iw - PMHx: 11:48 Anxiety; iw - PSHx: 11:48 vaginal reconstruction; iw - Immunization history:: Adult Immunizations up to date. - Infectious Disease History:: Denies. - Social history:: Smoking status: Patient denies any tobacco usage or history of. Screenin:55 [facility] ED Fall Risk Assessment (Adult) History of falling in the last 3 months, rs5 including since admission No falls in past 3 months (0 pts) Confusion or Disorientation No (0 pts) Intoxicated or Sedated No (0 pts) Impaired Gait No (0 pts) Mobility Assist Device Used No (0 pt) Altered Elimination No (0 pt) Score/Fall Risk Level 0 - 2 = Low Risk Oriented to surroundings, Maintained a safe environment. 11:55 Abuse screen: Denies threats or abuse. Nutritional screening: No deficits noted. rs5 Tuberculosis screening: No symptoms or risk factors identified. Assessment: 12:12 Reassessment: see triage assessment . rs5 13:30 Reassessment: Patient and/or family updated on plan of care and expected duration. Pain rs5 level reassessed. Patient is alert, oriented x 3, equal unlabored respirations, skin warm/dry/pink. 14:01 Reassessment: Patient and/or family updated on plan of care and expected duration. Pain rs5 level reassessed. Patient is alert, oriented x 3, equal unlabored respirations, skin warm/dry/pink. Vital Signs: 11:46 BP 111 / 76; Pulse 113; Resp 16 S; Temp 98.4; Pulse Ox 100% ; Weight 55.79 kg; Height 5 iw ft. 2 in. ; Pain 0/10; 13:01 BP 115 / 79; Pulse 77; Resp 17; Pulse Ox 99% on R/A; rs5 14:00 BP 110 / 75; Pulse 75; Resp 18; Pulse Ox 98% on R/A; rs5 11:46 Body Mass Index 22.50 (55.79 kg, 157.48 cm) iw 11:46 Pain Scale: Adult iw ED Course: 11:27 Patient arrived in ED. mg5 11:39 Jhoan Chamorro MD is Attending Physician. sp3 11:48 Triage completed. iw 11:49 Arm band placed on. iw 11:55 Patient has correct armband on for positive identification. Placed in gown. Bed in low rs5 position. Call light in reach. Side rails up X2. 12:02 Sudheer Cook, RN is Primary Nurse. rs5 12:59 OB Limited In Process Unspecified. EDMS 14:04 No provider procedures requiring assistance completed. IV discontinued, intact, ss bleeding controlled, No redness/swelling at site. Pressure dressing applied. Administered Medications: 12:33 Drug: NS 0.9% IV 1000 ml IV at 1 bolus Per protocol; to be given as a bolus over 60 rs5 minutes Route: IV; Rate: 1 bolus; Site: right antecubital; 13:59 Follow up: IV Status: Completed infusion; IV Intake: 1000ml ss 13:21 Drug: Acetaminophen PO 650 mg PO once Route: PO; rs5 13:59 Follow up: Response: No adverse reaction ss Medication: 14:00 VIS not applicable for this client. rs5 Intake: 13:59 IV: 1000ml; Total: 1000ml. Outcome: 13:21 Discharge ordered by . sp3 14:04 Discharged to home ambulatory, with family, 14:04 Condition: good 14:04 Discharge instructions given to patient, family, Instructed on discharge instructions, follow up and referral plans. medication usage, Demonstrated understanding of instructions, follow-up care, medications, Prescriptions given X 1, 14:04 Patient left the ED. ss Signatures: Dispatcher [employer] EDOH Latrice Cody RN RN Lelo Brennan RN RN Jhoan Chamorro MD MD sp3 Sudheer Cook, RN RN rs5 Kathryn Gomez mg5 Corrections: (The following items were deleted from the chart) 11:49 11:46 BP 111 / 76; Pulse 113bpm; Resp 16bpm; Spontaneous; [facility]
--- NOTE | 2024-10-12 13:22 | EDPHYS ---
Physician Documentation [facility] Name: Kassy Armenta Age: 29 yrs Sex: Female : 1995 Arrival Date: 10/12/2024 Time: 11:24 Bed 13 Private MD: ED Physician Jhoan Chamorro HPI: 10/12 13:07 This 29 yrs old Female presents to ER via Ambulatory with complaints of Dizziness, HOT, sp3 [id number]. 13:07 49-year-old female with history of anxiety presents to the ED with chief complaint near sp3 syncope and generalized weakness. Patient is 15 weeks . She denies any vaginal bleeding or discharge or abdominal pain. Patient does states she has been outside has not been fully hydrating. The event occurred while she was out "fishing". She is feeling better now. Review of systems negative for headache, neck pain, chest pain, shortness of breath, abdominal pain, vomiting, diarrhea, full syncope, seizure, or any other signs or symptoms on ROS at this time.. Historical: - Allergies: 11:48 No Known Allergies; iw - Home Meds: 11:48 Xanax Oral [Active]; iw - PMHx: 11:48 Anxiety; iw - PSHx: 11:48 vaginal reconstruction; iw - Immunization history:: Adult Immunizations up to date. - Infectious Disease History:: Denies. - Social history:: Smoking status: Patient denies any tobacco usage or history of. ROS: 13:08 Constitutional: Negative for fever, chills, and weight loss, Eyes: Negative for injury, sp3 pain, redness, and discharge, ENT: Negative for injury, pain, and discharge, Neck: Negative for injury, pain, and swelling, Respiratory: Negative for shortness of breath, cough, wheezing, and pleuritic chest pain, Abdomen/GI: Negative for abdominal pain, nausea, vomiting, diarrhea, and constipation, Back: Negative for injury and pain, MS/Extremity: Negative for injury and deformity, Skin: Negative for injury, rash, and discoloration, Psych: Negative for depression, anxiety, suicide ideation, homicidal ideation, and hallucinations, Allergy/Immunology: Negative for hives, rash, and allergies, Endocrine: Negative for neck swelling, polydipsia, polyuria, polyphagia, and marked weight changes, Hematologic/Lymphatic: Negative for swollen nodes, abnormal bleeding, and unusual bruising, 13:08 All other systems are negative, Exam: 13:09 Constitutional: This is a well developed, well nourished patient who is awake, alert, sp3 and in no acute distress. Head/Face: Normocephalic, atraumatic. Eyes: Pupils equal round and reactive to light, extra-ocular motions intact. Lids and lashes normal. Conjunctiva and sclera are non-icteric and not injected. Cornea within normal limits. Periorbital areas with no swelling, redness, or edema. ENT: Nares patent. No nasal discharge, no septal abnormalities noted. External auditory canals are clear. Oropharynx with no redness, swelling, or masses, exudates, or evidence of obstruction, uvula midline. Mucous membranes moist. Neck: Trachea midline, no thyromegaly or masses palpated, and no cervical lymphadenopathy. Supple, full range of motion without nuchal rigidity, or vertebral point tenderness. No Meningismus. Chest/axilla: Normal chest wall appearance and motion. Nontender with no deformity. No lesions are appreciated. Respiratory: Lungs have equal breath sounds bilaterally, clear to auscultation and percussion. No rales, rhonchi or wheezes noted. No increased work of breathing, no retractions or nasal flaring. Abdomen/GI: Soft, non-tender, with normal bowel sounds. No distension or tympany. No guarding or rebound. No evidence of tenderness throughout. Back: No spinal tenderness. No costovertebral tenderness. Full range of motion. Skin: Warm, dry with normal turgor. Normal color with no rashes, no lesions, and no evidence of cellulitis. MS/ Extremity: Pulses equal, no cyanosis. Neurovascular intact. Full, normal range of motion. Neuro: Awake and alert, GCS 15, oriented to person, place, time, and situation. Cranial nerves II-XII grossly intact. Motor strength 5/5 in all extremities. Sensory grossly intact. Cerebellar exam normal. Normal gait. Psych: Awake, alert, with orientation to person, place and time. Behavior, mood, and affect are within normal limits. 13:09 Cardiovascular: Patient tachycardic 110, 13:10 ENT: Dry mucous membranes noted. sp3 Vital Signs: 11:46 BP 111 / 76; Pulse 113; Resp 16 S; Temp 98.4; Pulse Ox 100% ; Weight 55.79 kg; Height 5 iw ft. 2 in. ; Pain 0/10; 13:01 BP 115 / 79; Pulse 77; Resp 17; Pulse Ox 99% on R/A; rs5 14:00 BP 110 / 75; Pulse 75; Resp 18; Pulse Ox 98% on R/A; rs5 11:46 Body Mass Index 22.50 (55.79 kg, 157.48 cm) iw 11:46 Pain Scale: Adult iw MDM: 11:52 Medical Screening Exam initiated sp3 13:12 Data reviewed: vital signs, nurses notes, lab test result(s), radiologic studies. ED sp3 course: 29-year-old female with near syncope. Differential diagnosis includes dehydration versus electrolyte abnormality versus other viral process. Workup has included general labs, ultrasound and UA which UA demonstrates mild infection. Ultrasound is normal. Labs otherwise normal as well. We will hydrate with normal saline and safely discharge patient home on oral nitrofurantoin.. 10/12 11:52 Order name: Basic Metabolic Panel; Complete Time: 12:55 sp3 10/12 11:52 Order name: CBC with Diff; Complete Time: 12:55 sp3 10/12 11:52 Order name: Test, Urine; Complete Time: 12:55 sp3 10/12 11:52 Order name: Urinalysis w/ reflexes; Complete Time: 12:55 sp3 10/12 11:52 Order name: LFT's; Complete Time: 12:55 sp3 10/12 12:37 Order name: OB Limited; Complete Time: 13:20 EDMS 10/12 11:52 Order name: IV Saline Lock; Complete Time: 13:22 sp3 10/12 11:52 Order name: Labs collected and sent; Complete Time: 13:22 sp3 10/12 11:52 Order name: NPO; Complete Time: 13:22 sp3 Administered Medications: 12:33 Drug: NS 0.9% IV 1000 ml IV at 1 bolus Per protocol; to be given as a bolus over 60 rs5 minutes Route: IV; Rate: 1 bolus; Site: right antecubital; 13:59 Follow up: IV Status: Completed infusion; IV Intake: 1000ml ss 13:21 Drug: Acetaminophen PO 650 mg PO once Route: PO; rs5 13:59 Follow up: Response: No adverse reaction ss Disposition Summary: 10/12/24 13:21 Discharge Ordered Notes: Location: Home sp3 Condition: Stable sp3 Diagnosis - Dehydration, UTI sp3 Followup: sp3 - With: Private Physician - When: Upon discharge from the Emergency Department - Reason: Continuance of care Discharge Instructions: - Discharge Summary Sheet sp3 - Dehydration, Adult sp3 - and Urinary Tract Infection sp3 Forms: - Medication Reconciliation Form sp3 - Antibiotic Education sp3 - Prescription Opioid Use sp3 - Patient Portal Instructions sp3 - Leadership Thank You Letter sp3 Prescriptions: - Macrobid 100 mg Oral Capsule - take 1 capsule ORAL route every 12 hours for 7 days; 14 capsule; Refills: 0, sp3 Product Selection Permitted Signatures: Dispatcher [employer] Latrice Sethi RN RN iw Jhoan Chamorro MD MD sp3 Sudheer Cook RN RN rs5 Lelo Brennan RN ss Corrections: (The following items were deleted from the chart) 12:37 11:53 Transvaginal Ob+US.RAD.BRZ ordered. MANASA GOEL
[2024-10-12 14:37] VITALS: BP 111/76; TEMP 98.4; O2SAT 100
== END 2024-10-12 14:04 | disposition home or self-care (01) ==
LOC: ER 11:24
DX: O23.42 Unspecified infection of urinary tract in pregnancy, second trimester (principal); O99.282 Endocrine, nutritional and metabolic diseases complicating pregnancy, second trimester; E86.0 Dehydration; Z3A.15 15 weeks gestation of pregnancy
CPT/HCPCS: 85025; 81001; 80048; 36415; 81025; 80076; 76815; 96360; 99284; J7030

== ENCOUNTER 2025-03-09 20:13 | Emergency (ER) | payer OTHER ==
--- NOTE | 2025-03-09 20:21 | EDPHYS ---
Physician Documentation [facility] Name: Kassy Armenta Age: 29 yrs Sex: Female : 1995 Arrival Date: 03/09/2025 Time: 20:13 Bed 1 Private MD: ED Physician Lawrence Newberry HPI: 03/09 20:56 This 29 yrs old Female presents to ER via Wheelchair with complaints of 36 wks rt , Pelvic Pain. 20:56 Patient is a G3, P2 currently at 36 weeks and reportedly uncomplicated who rt presents to the ED with a few contractions starting about 1.5 hours ago, she had a Gap in these contractions, again started up, last contractions were about 5 minutes prior to arrival, denies any current contractions, rupture of membranes. States that she is delivering at the [facility]. Denies other acute complaints, symptoms are moderate in severity, no other aggravating or alleviating factors.. 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 - Infectious Disease History:: Denies. - Social history:: Smoking status: unknown. - Family history:: not pertinent. ROS: 20:56 Constitutional: Negative for fever, chills, and weight loss, Cardiovascular: Negative rt for chest pain, palpitations, and edema, Respiratory: Negative for shortness of breath, cough, wheezing, and pleuritic chest pain, Skin: Negative for injury, rash, and discoloration, Neuro: Negative for headache, weakness, numbness, tingling, and seizure, 20:56 Abdomen/GI: Positive for Abdominal pain, contractions, Exam: 20:56 Constitutional: This is a well developed, well nourished patient who is awake, alert, rt and in no acute distress. Head/Face: Normocephalic, atraumatic. Chest/axilla: Normal chest wall appearance and motion. Nontender with no deformity. No lesions are appreciated. Cardiovascular: Regular rate and rhythm with a normal S1 and S2. No gallops, murmurs, or rubs. Normal PMI, no JVD. No pulse deficits. Respiratory: Lungs have equal breath sounds bilaterally, clear to auscultation and percussion. No rales, rhonchi or wheezes noted. No increased work of breathing, no retractions or nasal flaring. Skin: Warm, dry with normal turgor. Normal color with no rashes, no lesions, and no evidence of cellulitis. MS/ Extremity: Pulses equal, no cyanosis. Neurovascular intact. Full, normal range of motion. Neuro: Awake and alert, GCS 15, oriented to person, place, time, and situation. Cranial nerves II-XII grossly intact. Motor strength 5/5 in all extremities. Sensory grossly intact. Cerebellar exam normal. Normal gait. 20:56 Abdomen/GI: Gravid, nontender uterus, 20:56 : Cervix 1 to 2 cm, Vital Signs: 20:22 BP 143 / 85; Pulse 93; Resp 22; Temp 97.4(IR); Pulse Ox 100% on R/A; Weight 63.5 kg; cm10 Height 5 ft. 2 in. ; Pain 10/10; 21:13 BP 138 / 86; Pulse 96; Resp 24; Pulse Ox 100% ; vc1 20:22 Body Mass Index 25.61 (63.50 kg, 157.48 cm) cm10 20:22 Pain Scale: Adult cm10 MDM: 20:20 Medical Screening Exam initiated rt 20:56 Differential Diagnosis Contractions, labor. Data reviewed: vital signs, nurses notes. 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 Counseling: I had a detailed discussion with the patient and/or guardian regarding the historical points, exam findings, and any diagnostic results supporting the discharge/admit diagnosis, the need to transfer to another facility. Response to treatment: There is no appreciated change of the patient's symptoms at this time. 03/09 20:20 Order name: FHT's; Complete Time: 20:26 rt Administered Medications: No medications were administered Disposition Summary: 03/09/25 20:21 Transfer Ordered Notes: Transfer Location: [facility] rt Reason: Higher level of care rt Condition: Serious rt Problem: new rt Symptoms: are unchanged rt Accepting Physician: (03/09/25 21:13) vc1 Diagnosis - Uterine contractions, 36 weeks rt Forms: - Medication Reconciliation Form rt - SBAR form rt Signatures: Toshia Montgomery RN RN vc1 Lawrence Newberry MD MD rt Rosalinda Husain RN RN cm10 Corrections: (The following items were deleted from the chart) 21:13 20:21 Dr. veliz vc1
--- NOTE | 2025-03-09 21:14 | ER ---
Nurse's Notes [facility] Name: Kassy Armenta Age: 29 yrs Sex: Female : 1995 Arrival Date: 03/09/2025 Time: 20:13 Bed 1 Private MD: Diagnosis: Uterine contractions, 36 weeks Presentation: 03/09 20:22 Chief complaint: Patient states: Approximately 36 weeks and started having cm10 contractions 1.5hrs ago. Pt . Coronavirus screen: Client denies travel out of the [place] in the last 14 days. Ebola Screen: Patient denies travel to an Ebola-affected area in the 21 days before illness onset. Initial Sepsis Screen: Does the patient meet any 2 criteria? No. Patient's initial sepsis screen is negative. Does the patient have a suspected source of infection? No. Patient's initial sepsis screen is negative. Risk Assessment: Do you want to hurt yourself or someone else? Patient reports no desire to harm self or others. Onset of symptoms was March 09, 2025. 20:22 Method Of Arrival: Wheelchair cm10 20:22 Acuity: LEO 2 cm10 Triage Assessment: 20:23 General: Appears uncomfortable, Behavior is cooperative. Pain: Complains of pain in cm10 abdomen Pain currently is 10 out of 10 on a pain scale. Neuro: No deficits noted. Level of Consciousness is awake, alert, obeys commands, Oriented to person, place, time, situation, Appropriate for age. Respiratory: No deficits noted. Airway is patent Respiratory effort is even, unlabored, Respiratory pattern is regular, symmetrical. 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 - Infectious Disease History:: Denies. - Social history:: Smoking status: unknown. - Family history:: not pertinent. Screenin:27 [facility] ED Fall Risk Assessment (Adult) History of falling in the last 3 months, vc1 including since admission No falls in past 3 months (0 pts) Confusion or Disorientation No (0 pts) Intoxicated or Sedated No (0 pts) Impaired Gait No (0 pts) Mobility Assist Device Used No (0 pt) Altered Elimination No (0 pt) Score/Fall Risk Level 0 - 2 = Low Risk Oriented to surroundings, Maintained a safe environment, Educated pt \T\ family on fall prevention, incl call for assistance when getting out of bed, Hourly rounding (assess needs \T\ fall precautionary measures) done. Abuse screen: Denies threats or abuse. Nutritional screening: No deficits noted. Tuberculosis screening: No symptoms or risk factors identified. Assessment: 21:13 Reassessment: No changes from previously documented assessment. Patient and/or family vc1 updated on plan of care and expected duration. Pain level reassessed. Patient is alert, oriented x 3, equal unlabored respirations, skin warm/dry/pink. Vital Signs: 20:22 BP 143 / 85; Pulse 93; Resp 22; Temp 97.4(IR); Pulse Ox 100% on R/A; Weight 63.5 kg; cm10 Height 5 ft. 2 in. ; Pain 10/10; 21:13 BP 138 / 86; Pulse 96; Resp 24; Pulse Ox 100% ; vc1 20:22 Body Mass Index 25.61 (63.50 kg, 157.48 cm) cm10 20:22 Pain Scale: Adult cm10 Vitals: 20:27 Heart Tones 135 BPM. vc1 ED Course: 20:14 Patient arrived in ED. mr 20:19 Lawrence Newberry MD is Attending Physician. rt 20:23 Triage completed. cm10 20:23 initiated transfer with deb at [facility] \T\2022. kmf 20:24 Arm band placed on right wrist. Patient placed in an exam room, on a stretcher. cm10 20:27 Assist provider with pelvic exam: Performed by Lawrence Newberry MD Patient tolerated vc1 well. Inserted saline lock: 22 gauge in left antecubital area, using aseptic technique. Blood collected. Flushed with 10 mL NS. 20:28 Patient has correct armband on for positive identification. Bed in low position. Call vc1 light in reach. Side rails up X2. Provided Education on: transfer. Pulse ox on. NIBP on. 21:13 Patient transferred, IV remains in place. vc1 03/10 00:43 pt was accepted to [facility] christina Schaefer \Jade\ Magalys Accepting Nicole Omer \T\ 2030. Number km f for nurse to nurse report [phone]. [facility] to transfer pt. Administered Medications: No medications were administered Medication: 03/09 20:28 VIS not applicable for this client. vc1 Outcome: 20:21 ER care complete, transfer ordered by . rt 21:13 Transferred by ground EMS to [facility], Transfer form vc1 completed. 21:13 Condition: stable 21:13 Instructed on the need for transfer, 21:13 Patient left the ED. vc1 Signatures: Scarlett Toledo, Reg Reg mr Toshia Montgomery RN RN vc1 Lawrence Newberry MD MD rt Rosalinda Husain RN RN cm10 Natalie Bermudez [facility]
[2025-03-09 22:19] VITALS: TEMP 97.4; O2SAT 100
[2025-03-09 22:22] VITALS: BP 138/86
== END 2025-03-09 21:13 | disposition short-term general hospital (02) ==
LOC: ER 20:13
DX: O47.03 False labor before 37 completed weeks of gestation, third trimester (principal); Z3A.36 36 weeks gestation of pregnancy
CPT/HCPCS: 99285